=== PATIENT | female | born 1975 | race Caucasian/White ===

== ENCOUNTER → 2018-04-01 08:54 | Outpatient (CLI) | payer OTHER, SELFPAY ==
--- NOTE | 2018-04-01 | DI.MG.S_ITS ---
BILATERAL DIGITAL SCREENING MAMMOGRAM 3D/2D WITH CAD: 04/01/2018 CLINICAL: Routine screening. Family history of breast cancer. Comparison is made to exams dated: 03/03/2017 mammogram, 02/20/2016 mammogram - [facility], and 12/30/2014 mammogram - [facility]. There are scattered fibroglandular elements in both breasts. Current study was also evaluated with a Computer Aided Detection (CAD) system. No significant masses, calcifications, or other findings are seen in either breast. There has been no significant interval change. IMPRESSION: NEGATIVE There is no mammographic evidence of malignancy. A 1 year screening mammogram is recommended. This exam was interpreted at Station ID: [id number]. NOTE: For mammograms, a report in lay terms will be sent to the patient. Approximately 15% of breast malignancies will not be visualized mammographically. In the management of a palpable breast mass, a negative mammogram must not discourage biopsy of a clinically suspicious lesion. Electronically Signed By: Arnie ramírez/martin:04/01/2018 11:01:59 letter sent: Normal Exam ACR BI-RADS Category 1: Negative [id number]
== END ==
PROVIDERS: Family Provider Family Medicine; PCP Family Medicine; Visit Provider Family Medicine
DX: Z12.31 Encounter for screening mammogram for malignant neoplasm of breast (principal); Z80.3 Family history of malignant neoplasm of breast
CPT/HCPCS: 77063; 77067

== ENCOUNTER 2018-05-30 19:28 | Emergency (ER) | payer OTHER, SELFPAY ==
[2018-05-30 19:32] VITALS: BP 126/80; PULSE 96; RESP 22; TEMP 36.8; O2SAT 98; BMI 46.5
[2018-05-30 20:25] LABS: Alanine Aminotransferase 442 IU/L (9-52); Albumin 4.1 g/dL (3.5-5.0); Albumin Globulin Ratio 1.1 (1.0-2.8); Alkaline Phosphatase 133 U/L (38-126); Aspartate Aminotransferase 260 IU/L (14-36); BUN Creatinine Ratio 15.7 (6-22); Bilirubin Total 5.9 mg/dL (0.2-1.3); Blood Urea Nitrogen 11 mg/dL (7-17); Calcium 9.1 mg/dL (8.4-10.2); Carbon Dioxide 20 mmol/L (22-32); Chloride 103 mmol/L (98-107); Estimated Glomerular Filt Rate > 60.0 mL/min (>60); Globulin 3.8 g/dL (1.7-4.1); Glucose 101 mg/dL (70-100); HEMOLYSIS 36 (0-50); Lipase 69 U/L (23-300); Potassium 3.6 mmol/L (3.4-5.1); Sodium 135 mmol/L (137-145); Total Protein 7.9 g/dL (6.3-8.2)
[2018-05-30 20:33] LABS: Add Manual Diff / Slide Review NO; Basophils Absolute Auto 0 /uL (0-100); Basophils Percent Auto 0.3 % (0-2); Eosinophils Absolute Auto 0 /uL (0-450); Eosinophils Percent Auto 0.1 % (2-4); Hematocrit 40.2 % (36-46); Hemoglobin 13.5 g/dL (12.0-16.0); Lymphocytes Absolute Auto 600 /uL (1100-4500); Lymphocytes Percent Auto 4.1 % (25-40); Mean Corpuscular HGB Conc 33.6 % (30-36); Mean Corpuscular Hemoglobin 29.4 PG (26-34); Mean Corpuscular Volume 87.2 fL (80-100); Monocytes Absolute Auto 300 /uL (0-900); Monocytes Percent Auto 2.3 % (3-14); Neutrophils Absolute Auto 14000 /uL (1500-7000); Neutrophils Percent Auto 93.2 % (50-75); Platelet Count 258 X10^3/uL (150-400); Red Blood Cell Count 4.61 X10^6/uL (4.0-5.2); Red Cell Distribution Width 14.5 % (11.6-14.8)
[2018-05-30 20:44] VITALS: BP 112/61; PULSE 92; RESP 24; O2SAT 97
--- NOTE | 2018-05-30 21:41 | DI.CT.S_ITS ---
PROCEDURE: CT ABDOMEN PELVIS W CON INDICATIONS: abdominal pain, abnormal labs TECHNIQUE: After the administration of intravenous contrast, 5 mm thick sections acquired from the diaphragm to the symphysis. 5 mm coronal and sagittal reformats were acquired. For radiation dose reduction, the following was used: automated exposure control, adjustment of mA and/or kV according to patient size. COMPARISON: None. FINDINGS: Image quality: Excellent. ABDOMEN: Lung bases: Lung bases are clear. Heart size is normal. Solid organs: Liver is normal in size and enhancement. The liver is diffusely fatty infiltrated, moderate in severity Gallbladder has been previously resected. Biliary system is non dilated. Pancreas enhances normally. Spleen is normal in size and enhancement. No adrenal nodules. Kidneys demonstrate normal size and enhancement, without hydronephrosis. Peritoneum and bowel: Bowel loops demonstrate normal wall thickness and caliber. No free fluid or air. Nodes and vessels: No retroperitoneal or mesenteric adenopathy by size criteria. Aorta and inferior vena cava are normal in size. Miscellaneous: No ventral hernias. PELVIS: Genitourinary: Bladder wall thickness is normal. There is a normal-sized follicular cyst on the right at the ovary. Miscellaneous: No inguinal hernias or adenopathy. A normal or abnormal appendix could not be located Bones: No suspicious bony lesions. No vertebral body compression fractures. IMPRESSION: Large body habitus, which mildly degrades quality of visualization. Generalized fatty infiltration prominent throughout the liver. No sign of cirrhosis or hepatomegaly, or splenomegaly. A normal or abnormal appendix could not be located at the right lower quadrant but there is no secondary CT evidence of acute appendicitis. Note: These findings are concordant with the preliminary interpretation. Dictated by: Ariel Matute M.D. on 05/31/2018 at 10:05 Approved by: Ariel Matute M.D. on 05/31/2018 at 10:07
--- NOTE | 2018-05-30 21:43 | DI.US.S_ITS ---
PROCEDURE: US ABDOMEN COMPLETE INDICATIONS: ELEVATED LFTS; PAIN TECHNIQUE: Real-time scanning was performed of the abdominal and retroperitoneal organs, with image documentation. COMPARISON: None. FINDINGS: Liver: Liver is normal in size and homogeneous in echotexture, diffusely moderately hyperechoic consistent with fatty infiltration. Gallbladder: Surgically absent Biliary ducts: Intrahepatic bile ducts are non-dilated. Extrahepatic bile duct caliber measures 8.7 mm. Normal is 6-7 mm or less in diameter, or 10 mm or less post-cholecystectomy. Pancreas: Visualized portions of the pancreas are sonographically normal. Pancreatic tail not seen due to bowel gas. Spleen: Spleen is normal in size and homogeneous in echotexture. Kidneys: Kidneys are normal in size and echotexture. Right kidney measures 12.6 cm long; left kidney measures 12.5 cm long. No hydronephrosis or nephrolithiasis. No solid masses. Aorta: Visualized aorta is normal in caliber at less than 3 cm. Iliacs: Not seen due to bowel gas IVC: Intrahepatic inferior vena cava is patent. Miscellaneous: No free abdominal fluid. IMPRESSION: Hyperechoic liver echotexture consistent with fatty infiltration. Prior cholecystectomy. Portions of the peritoneal space are not well seen due to bowel gas, but overall a definite source of elevated liver function tests such as abscess formation or biliary obstruction is not found. Dictated by: Ariel Matute M.D. on 05/31/2018 at 8:36 Approved by: Ariel Matute M.D. on 05/31/2018 at 8:38
--- NOTE | 2018-05-30 21:47 | ED.ABDPAIN ---
HPI - Abdominal Pain General Chief Complaint: Abdominal Pain Stated Complaint: PAIN LEFT UPPER ABDOMIN FOOD POISONING Time Seen by Provider: 05/30/18 20:10 Source: patient Mode of arrival: ambulatory Limitations: no limitations History of Present Illness HPI narrative: Patient presents to the emergency department with complaint of left upper quadrant abdominal pain for the last 2 days. She states she was seen at [facility], after the pain began suddenly on night. She states she was worked up with labs, told she had food poisoning, and sent. She states the pain has continued to escalate over the ensuing days, and that she has been nauseated and unable to eat or drink much of anything. Patient denies any fevers; No cough or shortness of breath. No chest pain. patient denies any history of peptic ulcer disease. She states she has had a cholecystectomy, but has had problems with stones forming in remnant the duct. She states that this feels similar to that, except for the pain being on the left side, not the right. She states her pain is a 10/10. Nothing makes it better or worse. Related Data Home Medications Medication Instructions Recorded Confirmed albuterol sulfate 1 puff INHALATION Q4-6H PRN 05/31/18 05/31/18 bupropion HCl 300 mg PO QAM 05/31/18 05/31/18 escitalopram oxalate [Lexapro] 20 mg PO DAILY 05/31/18 05/31/18 omeprazole 40 mg PO DAILY 05/31/18 05/31/18 topiramate 100 mg PO DAILY 05/31/18 05/31/18 Allergies Allergy/AdvReac Type Severity Reaction Status Date / Time Pertussis Vaccines Allergy Unknown Verified 05/30/18 23:25 Review of Systems Constitutional Denies chills, Denies fever(s), Denies lethargy and Denies weakness Eyes Denies change in vision, Denies eye discharge, Denies irritation and Denies loss of vision ENT Ears, Nose, Mouth, and Throat: Denies change in voice, Denies neck pain and Denies sore throat Cardiovascular Denies chest pain, Denies irregular heart rhythm, Denies lightheadedness, Denies palpitations, Denies dyspnea, Denies dyspnea on exertion and Denies orthopnea Respiratory Denies cough, Denies dyspnea, Denies dyspnea on exertion and Denies wheezing Gastrointestinal Gastrointestinal: Reports abdominal pain, Denies change in bowel habits, Denies diarrhea, Reports nausea and Reports vomiting Genitourinary Denies hematuria, Denies flank pain, Denies urinary incontinence and Denies urinary urgency Musculoskeletal Denies neck pain Integumentary/Breasts Denies pruritus, Denies erythema, Denies rash and Denies wounds Neurologic Denies confusion, Denies loss of vision and Denies weakness Psychiatric Denies anxiety, Denies confusion, Denies depression, Denies homicidal ideation and Denies suicidal ideation Endocrine Denies palpitations Hematologic/Lymphatic Denies easy bruising Allergic/Immunologic Denies wheezing PFSH Medical History Recurrent abdominal pain (Acute) Morbid obesity (Acute) Surgical History History of cholecystectomy (Acute) Social History Smoking Status: Never smoker Social History Smoking Status: Never smoker Exam Initial Vital Signs Initial Vital Signs: Vital Signs Temperature 98.3 F 05/30/18 19:32 Pulse Rate 96 H 05/30/18 19:32 Respiratory Rate 22 05/30/18 19:32 Blood Pressure 126/80 05/30/18 19:32 Pulse Oximetry 98 05/30/18 19:32 Const General: cooperative and well developed Nutritional Appearance: obese morbidly obese Orientation: alert, awake, oriented x3 and not confused Other: Patient is grunting with exhalation, and appears uncomfortable. [facility] [place] Head: normocephalic and atraumatic Ears: external ears normal and TM's normal bilaterally Nose: external nose normal and No nasal discharge Face and sinus: sinuses nontender, face symmetric, no sinus tenderness and No dry mucous membranes Mouth: oral mucosae normal and moist mucous membranes Teeth and gingiva: dentition normal Throat: tonsils normal and uvula midline Eyes General: appearance normal, both eyes and all related structures Eyelids: eyelids normal Conjunctivae: conjunctivae normal Sclera: sclerae normal Pupils: PERRL EOM: EOM intact bilaterally Neck Neck: normal visual inspection, trachea midline, No lymphadenopathy, No midline deformity and No JVD Lymphatic: No lymphedema Chest Chest: normal inspection of the chest Resp Effort & Inspection: normal respiratory effort, able to speak in complete sentences, no respiratory distress and no use of accessory muscles Auscultation: clear to auscultation bilaterally, no rales, no rhonchi and no wheezes Cardio Rate: regular rate Rhythm: regular rhythm Heart Sounds: no click, no gallops, no murmurs and no rubs Pulses: normal peripheral pulses GI Inspection: non-distended Palpation: soft, no hepatosplenomegaly, No guarding, No pulsatile mass and tender ( Moderate, left upper quadrant; mild, right upper quadrant.) Back/Spine/Pelvis Back: No CVA tenderness Cervical Spine: cervical ROM normal and No pain with cervical ROM Thoracic/Lumbar Spine: thoracic and lumbar spine normal to inspection Skin General: no rashes or lesions noted, No jaundice and No petechiae Neuro General: alert, oriented x3, gait normal and no focal motor deficits Speech: speech normal Extrem General: full ROM, no clubbing, cyanosis or edema, no pedal edema and no calf tenderness Psych Appearance: well kempt Mental Status: mental status grossly normal Attitude: cooperative Thought Content: normal and suicidality Judgment: judgment good Course Course Narrative: Patient was treated symptomatically with IV fluids, Zofran, Dilaudid, and Toradol. She was worked up with labs, which showed elevations in her LFTs and bilirubin, new since patient was seen [address] [facility]. I spoke with Dr. Lindo of surgery about this, and she stated that the patient would need an ERCP which we do not have here. Through somewhat of a long process, I did interface with the triage Dr. rosalba Carey, as the patient does have [employer] membership, and the patient was ultimately accepted at [facility] for transfer. Patient was treated symptomatically throughout her stay in the emergency department is found to be doing better on re-evaluation. She did remain hemodynamically stable. Orders Ordered: Discontinued Medications Hydromorphone HCl (Dilaudid) 1 mg IV NOW ONE Stop: 05/30/18 21:44 Last Admin: 05/30/18 22:21 Dose: 1 mg Hydromorphone HCl (Dilaudid) 1 mg IV NOW ONE Stop: 05/31/18 02:36 Last Admin: 05/31/18 02:39 Dose: 1 mg Sodium Chloride (Normal Saline 0.9%) 1,000 mls @ 1,000 mls/hr IV BOLUS ONE Stop: 05/30/18 22:42 Last Infusion: 05/30/18 23:25 Dose: 0 mls/hr Admin: 05/30/18 22:19 Dose: 1,000 mls/hr Cefepime HCl 2 gm/ Sodium (Chloride) 100 mls @ 200 mls/hr IV NOW ONE Stop: 05/31/18 01:22 Last Infusion: 05/31/18 02:50 Dose: 0 mls/hr Admin: 05/31/18 02:39 Dose: 200 mls/hr Metronidazole (Flagyl) 500 mg in 100 mls @ 100 mls/hr IV NOW ONE Stop: 05/31/18 02:20 Last Infusion: 05/31/18 03:52 Dose: 0 mls/hr Admin: 05/31/18 02:45 Dose: 100 mls/hr Ketorolac Tromethamine (Toradol) 30 mg IV NOW ONE Stop: 05/30/18 21:44 Last Admin: 05/30/18 22:19 Dose: 30 mg Ondansetron HCl (Zofran) 4 mg IV NOW ONE Stop: 05/30/18 21:44 Last Admin: 05/30/18 22:19 Dose: 4 mg Vital Signs - 8 hr 05/30/18 19:32 05/30/18 20:44 Temperature 98.3 F Pulse Rate 96 H 92 H Respiratory Rate 22 24 Blood Pressure 126/80 Blood Pressure [Left Arm] 112/61 Pulse Oximetry 98 97 MDM - Abdominal Pain Medical Records Attestation: I reviewed the patient's medical records. Lab Data Attestation: I reviewed the patient's lab results. Result diagrams: 05/30/18 19:55 05/30/18 19:55 Lab Results 05/30/18 05/30/18 05/30/18 Range/Units 19:55 19:55 19:55 WBC 15.0 H (4.5-11.0) X10^3/uL RBC 4.61 (4.0-5.2) X10^6/uL Hgb 13.5 (12.0-16.0) g/dL Hct 40.2 (36-46) % MCV 87.2 (80-100) fL MCH 29.4 (26-34) PG MCHC 33.6 (30-36) % RDW 14.5 (11.6-14.8) % Plt Count 258 (150-400) X10^3/uL Neut % (Auto) 93.2 H (50-75) % Lymph % (Auto) 4.1 L (25-40) % [place] % (Auto) 2.3 L (3-14) % Eos % (Auto) 0.1 L (2-4) % Baso % (Auto) 0.3 (0-2) % Neut # (Auto) 58098 H (9016-3369) /uL Lymph # (Auto) 600 L (3754-1100) /uL [place] # (Auto) 300 (0-900) /uL Eos # (Auto) 0 (0-450) /uL Baso # (Auto) 0 (0-100) /uL PT 15.1 H (10.1-12.7) SECONDS INR 1.3 (0.9-1.3) Sodium 135 L (137-145) mmol/L Potassium 3.6 (3.4-5.1) mmol/L Chloride 103 (98-107) mmol/L Carbon Dioxide 20 L (22-32) mmol/L BUN 11 (7-17) mg/dL Creatinine 0.70 (0.52-1.04) mg/dL Estimated GFR > 60.0 (>60) mL/min BUN/Creatinine Ratio 15.7 (6-22) Glucose 101 H (70-100) mg/dL Calcium 9.1 (8.4-10.2) mg/dL Total Bilirubin 5.9 H (0.2-1.3) mg/dL AST 260 H (14-36) IU/L ALT 442 H (9-52) IU/L Alkaline Phosphatase 133 H (38-126) U/L Total Protein 7.9 (6.3-8.2) g/dL Albumin 4.1 (3.5-5.0) g/dL Globulin 3.8 (1.7-4.1) g/dL Albumin/Globulin Ratio 1.1 (1.0-2.8) Lipase 69 (23-300) U/L Imaging Data CT scan - abdomen: Radiologist's impression: D Accession Number: [id number] Procedure: CT abdomen pelvis w con Ordering Provider: Bre Mccauley MD PROCEDURE: CT ABDOMEN PELVIS W CON INDICATIONS: abdominal pain, abnormal labs TECHNIQUE: After the administration of intravenous contrast, 5 mm thick sections acquired from the diaphragm to the symphysis. 5 mm coronal and sagittal reformats were acquired. For radiation dose reduction, the following was used: automated exposure control, adjustment of mA and/or kV according to patient size. COMPARISON: None. FINDINGS: Image quality: Excellent. ABDOMEN: Lung bases: Lung bases are clear. Heart size is normal. Solid organs: Liver is normal in size and enhancement. The liver is diffusely fatty infiltrated, moderate in severity Gallbladder has been previously resected. Biliary system is non dilated. Pancreas enhances normally. Spleen is normal in size and enhancement. No adrenal nodules. Kidneys demonstrate normal size and enhancement, without hydronephrosis. Peritoneum and bowel: Bowel loops demonstrate normal wall thickness and caliber. No free fluid or air. Nodes and vessels: No retroperitoneal or mesenteric adenopathy by size criteria. Aorta and inferior vena cava are normal in size. Miscellaneous: No ventral hernias. PELVIS: Genitourinary: Bladder wall thickness is normal. There is a normal-sized follicular cyst on the right at the ovary. Miscellaneous: No inguinal hernias or adenopathy. A normal or abnormal appendix could not be located Bones: No suspicious bony lesions. No vertebral body compression fractures. IMPRESSION: Large body habitus, which mildly degrades quality of visualization. Generalized fatty infiltration prominent throughout the liver. No sign of cirrhosis or hepatomegaly, or splenomegaly. A normal or abnormal appendix could not be located at the right lower quadrant but there is no secondary CT evidence of acute appendicitis. Note: These findings are concordant with the preliminary interpretation. Dictated by: Ariel Matute M.D. on 05/31/2018 at 10:05 Approved by: Ariel Matute M.D. on 05/31/2018 at 10:07 US - abdomen: Radiologist's impression: [place] [address] Ultrasound Report Signed Patient: Erin Rangel KMR#: [id number] : 1975Acct:[id number] Age/Sex: 42 / FDate of Service: 05/30/18 Loc: ED Accession Number: [id number] Procedure: US abdomen complete Ordering Provider: Bre Mccauley MD PROCEDURE: US ABDOMEN COMPLETE INDICATIONS: ELEVATED LFTS; PAIN TECHNIQUE: Real-time scanning was performed of the abdominal and retroperitoneal organs, with image documentation. COMPARISON: None. FINDINGS: Liver: Liver is normal in size and homogeneous in echotexture, diffusely moderately hyperechoic consistent with fatty infiltration. Gallbladder: Surgically absent Biliary ducts: Intrahepatic bile ducts are non-dilated. Extrahepatic bile duct caliber measures 8.7 mm. Normal is 6-7 mm or less in diameter, or 10 mm or less post-cholecystectomy. Pancreas: Visualized portions of the pancreas are sonographically normal. Pancreatic tail not seen due to bowel gas. Spleen: Spleen is normal in size and homogeneous in echotexture. Kidneys: Kidneys are normal in size and echotexture. Right kidney measures 12.6 cm long; left kidney measures 12.5 cm long. No hydronephrosis or nephrolithiasis. No solid masses. Aorta: Visualized aorta is normal in caliber at less than 3 cm. Iliacs: Not seen due to bowel gas IVC: Intrahepatic inferior vena cava is patent. Miscellaneous: No free abdominal fluid. IMPRESSION: Hyperechoic liver echotexture consistent with fatty infiltration. Prior cholecystectomy. Portions of the peritoneal space are not well seen due to bowel gas, but overall a definite source of elevated liver function tests such as abscess formation or biliary obstruction is not found. Dictated by: Ariel Matute M.D. on 05/31/2018 at 8:36 Approved by: Ariel Matute M.D. on 05/31/2018 at 8:38 Discharge Plan Departure Patient Disposition: [facility] Clinical Impression: Abdominal pain, Blockage of a bile duct Discharge Date/Time: 05/31/18 04:00 Interventions: ED Discharge Assessment Last Done: 05/31/18 03:13 Prescriptions: No Action omeprazole 40 mg Capsule,Delayed Release(Dr/Ec) 40 mg PO DAILY RF: 0 topiramate 100 mg Tablet 100 mg PO DAILY RF: 0 escitalopram oxalate [Lexapro] 20 mg Tablet 20 mg PO DAILY RF: 0 bupropion HCl 300 mg Tablet Extended Release 24 Hr 300 mg PO QAM RF: 0 albuterol sulfate 90 mcg/actuation Hfa Aerosol Inhaler 1 puff INHALATION Q4-6H PRN (Reason: Shortness Of Breath) RF: 0
[2018-05-30 22:05] LABS: INR 1.3 (0.9-1.3); Prothrombin Time 15.1 SECONDS (10.1-12.7)
[2018-05-30] MEDS: SODIUM CHLORIDE 0.9% 1,000 ML 1000 ML IV (22:19)
[2018-05-30] MEDS: KETOROLAC 60 MG/2 ML VIAL 30 MG IV (22:19)
[2018-05-30] MEDS: ONDANSETRON 4 MG/2 ML INJ IV (22:19)
[2018-05-30] MEDS: HYDROMORPHONE 1 MG INJ IV (22:21)
[2018-05-30 22:47] VITALS: BP 114/59; PULSE 91; RESP 20; O2SAT 99
[2018-05-31] VITALS: BP 108/54; PULSE 78; RESP 16; O2SAT 96
[2018-05-31 02:30] VITALS: BP 111/44; PULSE 85; RESP 16; O2SAT 97
[2018-05-31] MEDS: CEFEPIME 2 GM in SODIUM CHLORIDE 0.9% 100 ML 200 ML IV (02:39)
[2018-05-31] MEDS: HYDROMORPHONE 1 MG INJ IV (02:39)
[2018-05-31] MEDS: metroNIDAZOLE 500 MG/100 ML PIGGYBACK 100 MG IV (02:45)
[2018-05-31 03:01] VITALS: BP 106/55; PULSE 76; RESP 16; O2SAT 96
== END 2018-05-31 04:00 | disposition short-term general hospital (02) ==
PROVIDERS: Emergency Provider Emergency Medicine; Family Provider Family Medicine; PCP Family Medicine
DX: K83.1 Obstruction of bile duct (principal); R10.9 Unspecified abdominal pain
CPT/HCPCS: 36591; 74177; 76700; 80053; 83690; 85025; 85610; 93005; 96361; 96365; 96375; 96376; 99284; 99285; J0692; J1170; J1885; J2405; Q9967

== ENCOUNTER 2020-05-08 17:49 | Emergency (ER) | payer OTHER, SELFPAY ==
[2020-05-08] VITALS (8 sets, daily range): BP systolic 128–137; BP diastolic 68–91; PULSE 68–82; RESP 16; TEMP 36.1; O2SAT 95–100; BMI 56.6
--- NOTE | 2020-05-08 18:09 | DI.RAD.S_ITS ---
PROCEDURE: XR CHEST 1V INDICATIONS: shortness of breath TECHNIQUE: One view of the chest was acquired. COMPARISON: None. FINDINGS: Surgical changes and devices: None. Lungs and pleura: Small opacity at the medial right lung base. No pleural effusions or pneumothorax. Mediastinum: Mediastinal contours appear normal. Heart size is borderline enlarged, probably accentuated due to projection. Bones and chest wall: No suspicious bony lesions. Overlying soft tissues appear unremarkable. IMPRESSION: Questionable small right medial lung base opacity. Infiltrate is not excluded. Dictated by: Diane Lou M.D. on 05/08/2020 at 18:26 Approved by: Diane Lou M.D. on 05/08/2020 at 18:27
[2020-05-08 18:37] LABS: Add Manual Diff / Slide Review NO; Basophils Absolute Auto 100 /uL (0-100); Basophils Percent Auto 1.2 % (0-2); Eosinophils Absolute Auto 400 /uL (0-450); Eosinophils Percent Auto 4.3 % (2-4); Hematocrit 38.9 % (36-46); Hemoglobin 12.9 g/dL (12.0-16.0); Lymphocytes Absolute Auto 2800 /uL (1100-4500); Lymphocytes Percent Auto 34.2 % (25-40); Mean Corpuscular HGB Conc 33.2 % (30-36); Mean Corpuscular Hemoglobin 28.8 PG (26-34); Mean Corpuscular Volume 86.8 fL (80-100); Monocytes Absolute Auto 500 /uL (0-900); Monocytes Percent Auto 6.4 % (3-14); Neutrophils Absolute Auto 4400 /uL (1500-7000); Neutrophils Percent Auto 53.9 % (50-75); Platelet Count 330 X10^3/uL (150-400); Red Blood Cell Count 4.48 X10^6/uL (4.0-5.2); Red Cell Distribution Width 14.9 % (11.6-14.8); White Blood Cell Count 8.2 X10^3/uL (4.5-11.0)
[2020-05-08 18:56] LABS: Alanine Aminotransferase 38 IU/L (<35); Albumin 4.1 g/dL (3.5-5.0); Albumin Globulin Ratio 1.3 (1.0-2.8); Alkaline Phosphatase 68 U/L (38-126); Aspartate Aminotransferase 35 IU/L (14-36); BUN Creatinine Ratio 18.1 (6-22); Bilirubin Total 0.2 mg/dL (0.2-1.3); Blood Urea Nitrogen 13 mg/dL (7-17); Calcium 9.6 mg/dL (8.4-10.2); Carbon Dioxide 28 mmol/L (22-32); Chloride 104 mmol/L (98-107); Creatine Kinase 87 U/L (30-135); Estimated Glomerular Filt Rate > 60.0 mL/min (>60); Globulin 3.2 g/dL (1.7-4.1); Glucose 101 mg/dL (70-100); HEMOLYSIS < 15 (0-50); Lipase 118 U/L (23-300); Potassium 4.3 mmol/L (3.4-5.1); Sodium 136 mmol/L (137-145); Total Protein 7.3 g/dL (6.3-8.2)
[2020-05-08 19:08] LABS: NT-proBNP (BNP-Adult 18+) 136 pg/mL (<125); Troponin I < 0.012 ng/mL (0.01-0.034)
--- NOTE | 2020-05-08 19:52 | ED.CHESTPAIN ---
HPI - Chest Pain General Chief Complaint: Chest Pain Stated Complaint: Chest Pain Time Seen by Provider: 05/08/20 18:05 Source: patient Mode of arrival: Ambulatory Limitations: no limitations History of Present Illness HPI narrative: 44-year-old female here for evaluation of left-sided chest discomfort. She states that it has been going on off and on for the past several days. Not worse with palpation or movement or breathing. Has not had any shortness of breath. At the time of my interview she was having the discomfort although she admits that it was not as strong as what it has been in the past. She thought that the symptoms that she had at that time had been going on for the past several hours. She is unsure the exact onset. Has not tried anything for the symptoms prior to arrival. No prior history of cardiovascular disease. Related Data Home Medications Medication Instructions Recorded Confirmed albuterol sulfate 1 puff INHALATION Q4-6H PRN 05/31/18 05/31/18 bupropion HCl 300 mg PO QAM 05/31/18 05/31/18 escitalopram oxalate [Lexapro] 20 mg PO DAILY 05/31/18 05/31/18 omeprazole 40 mg PO DAILY 05/31/18 05/31/18 topiramate 100 mg PO DAILY 05/31/18 05/31/18 Allergies Allergy/AdvReac Type Severity Reaction Status Date / Time Pertussis Vaccines Allergy Unknown Verified 05/30/18 23:25 Review of Systems Constitutional Constitutional: Denies fever(s) Cardiovascular Cardiovascular: Reports chest pain and Denies dyspnea Respiratory Respiratory: Denies dyspnea Gastrointestinal Gastrointestinal: Denies abdominal pain, Denies nausea and Denies vomiting Genitourinary Genitourinary: Denies dysuria Genitourinary: Denies dysuria Musculoskeletal Musculoskeletal: Denies arthralgias and Denies myalgias Integumentary/Breasts Skin/Breast: Denies rash Neurologic Neurologic: Denies behavioral changes Psychiatric Psychiatric: Denies behavioral changes Hematologic/Lymphatic On Anticoagulants: No Allergic/Immunologic Allergic/Immunologic: Denies urticaria Patient History Medical History Morbid obesity Recurrent abdominal pain Surgical History (Updated 05/30/18 @ 21:59 by Bre Mccauley MD) History of cholecystectomy Social History Smoking Status: Never smoker Smoking Status: Never smoker alcohol intake frequency: 0-2 drinks per day Substance Use Type: marijuana Exam Initial Vital Signs Initial Vital Signs: Vital Signs Temperature 97.0 F L 05/08/20 18:10 Pulse Rate 82 05/08/20 18:10 Respiratory Rate 16 05/08/20 18:10 Blood Pressure 137/91 H 05/08/20 18:10 Pulse Oximetry 99 05/08/20 18:10 Const General: cooperative, comfortable and well developed Limitations: mental status not altered HENMT Head: normal to inspection and normocephalic Chest Chest: No crepitus and No tenderness Resp Effort & Inspection: normal respiratory effort Auscultation: clear to auscultation bilaterally Cardio Rate: regular rate Rhythm: regular rhythm GI Inspection: non-distended Palpation: soft, No firm and No tender Skin Lesions: no lesions Rashes: no rashes Neuro General: patient alert, patient awake and patient oriented x3 Cognition: normal cognition Speech: speech normal Extrem General: capillary refill normal Psych Appearance: grossly normal and well kempt Scores GCS Leigh coma scale eye opening: Spontaneous [place] coma scale verbal response: Orientated [place] coma scale motor response: Obey commands Leigh coma scale total score: 15 HEART Score Heart Score history: Slightly Suspicious Heart Score EKG: Normal Heart Score Age: 45-64 years old Heart Score risk factors: 1-2 risk factors Heart Score troponin: < or = to normal limit Heart Score Total: 2 Course Orders Ordered: ED Orders 05/08/20 17:57 EKG-12 Lead Stat 05/08/20 18:09 XR chest 1V Stat 05/08/20 18:29 Complete Blood Count AUTO DIFF Stat Comprehensive Metabolic Panel Stat Lipase Stat NT-proBNP (BNP-Adult 18+) Stat Troponin & CK Cardiac Panel Stat 05/08/20 20:32 Troponin & CK Cardiac Panel Stat Vital Signs Vital signs: Vital Signs - 8 hr 05/08/20 18:10 05/08/20 18:30 05/08/20 19:00 Temperature 97.0 F L Pulse Rate 74 75 71 Respiratory Rate 16 Blood Pressure 137/91 H Pulse Oximetry 100 99 99 05/08/20 19:30 05/08/20 19:54 05/08/20 20:00 Temperature Pulse Rate 70 68 69 Respiratory Rate Blood Pressure 137/91 H 134/74 132/76 Pulse Oximetry 98 98 96 05/08/20 20:30 05/08/20 21:00 Temperature Pulse Rate 70 76 Respiratory Rate Blood Pressure 128/68 133/78 Pulse Oximetry 96 95 MDM - Chest Pain Lab Data Attestation: I reviewed the patient's lab results. Result diagrams: 05/08/20 18:29 05/08/20 18:29 Labs: Lab Results 05/08/20 05/08/20 05/08/20 Range/Units 18:29 18:29 20:32 WBC 8.2 (4.5-11.0) X10^3/uL RBC 4.48 (4.0-5.2) X10^6/uL Hgb 12.9 (12.0-16.0) g/dL Hct 38.9 (36-46) % MCV 86.8 (80-100) fL MCH 28.8 (26-34) PG MCHC 33.2 (30-36) % RDW 14.9 H (11.6-14.8) % Plt Count 330 (150-400) X10^3/uL Neut % (Auto) 53.9 (50-75) % Lymph % (Auto) 34.2 (25-40) % Burnett % (Auto) 6.4 (3-14) % Eos % (Auto) 4.3 H (2-4) % Baso % (Auto) 1.2 (0-2) % Neut # (Auto) 4400 (0216-7506) /uL Lymph # (Auto) 2800 (8690-8501) /uL Burnett # (Auto) 500 (0-900) /uL Eos # (Auto) 400 (0-450) /uL Baso # (Auto) 100 (0-100) /uL Sodium 136 L (137-145) mmol/L Potassium 4.3 (3.4-5.1) mmol/L Chloride 104 (98-107) mmol/L Carbon Dioxide 28 (22-32) mmol/L BUN 13 (7-17) mg/dL Creatinine 0.72 (0.52-1.04) mg/dL Estimated GFR > 60.0 (>60) mL/min BUN/Creatinine Ratio 18.1 (6-22) Glucose 101 H (70-100) mg/dL Calcium 9.6 (8.4-10.2) mg/dL Total Bilirubin 0.2 (0.2-1.3) mg/dL AST 35 (14-36) IU/L ALT 38 H (<35) IU/L Alkaline Phosphatase 68 (38-126) U/L Total Creatine Kinase 87 82 (30-135) U/L CK-MB (CK-2) TNP TNP CK-MB (CK-2) Rel Index TNP TNP Troponin I < 0.012 < 0.012 (0.01-0.034) ng/mL NT-Pro-B Natriuret Pep 136 H (<125) pg/mL Total Protein 7.3 (6.3-8.2) g/dL Albumin 4.1 (3.5-5.0) g/dL Globulin 3.2 (1.7-4.1) g/dL Albumin/Globulin Ratio 1.3 (1.0-2.8) Lipase 118 (23-300) U/L Point of Care Testing Test Results Negative Urine Dip Bedside Urine Glucose Negative Bedside Urine Bilirubin - Negative Bedside Urine Ketone - Negative Urine Specific [place] 1.020 Bedside Urine Occult Blood - Negative Bedside Urine pH 6.0 Bedside Urine Protein - Negative Bedside Urine Urobilinogen - Negative Bedside Urine Nitrite - Negative Bedside Urine Leukocytes - Negative Esterase Imaging Data Chest x-ray: Radiologist's Impression: [address] [id number] ReportSigned Patient: Erin Rangel KMR#: [id number]: [id number]:[id number]/Sex: 44 / FDate of Service: 05/08/20Loc: EDAccession Number: [id number] Procedure: XR chest 1V Ordering Provider: Gonzales Bernstein D.O. PROCEDURE: XR CHEST 1V INDICATIONS: shortness of breath TECHNIQUE: One view of the chest was acquired. COMPARISON: None. FINDINGS: Surgical changes and devices: None. Lungs and pleura: Small opacity at the medial right lung base. No pleural effusions or pneumothorax. Mediastinum: Mediastinal contours appear normal. Heart size is borderline enlarged, probably accentuated due to projection. Bones and chest wall: No suspicious bony lesions. Overlying soft tissues appear unremarkable. IMPRESSION: Questionable small right medial lung base opacity. Infiltrate is not excluded. Dictated by: Diane Lou M.D. on 05/08/2020 at 18:26 Approved by: Diane Lou M.D. on 05/08/2020 at 18:27 ECG Data Attestation: I personally reviewed and interpreted this ECG as follows: Prior ECG tracings: not available for review Interpretation: Sinus rhythm Ventricular rate is 71 Normal axis Normal QRS Normal QTC No ST T wave changes MDM Narrative Medical decision making narrative: Chest x-ray is unremarkable, EKG is unremarkable, low risk heart score, troponins negative x2. Will discharge patient home to follow-up with primary doctor to discuss further workup to include stress testing. She was given return precautions and follow-up instructions. She expressed understanding and agreement. Discharge Plan Departure Patient Disposition: Home Clinical Impression: Atypical chest pain Instructions: DI for Atypical Chest Pain Activity Restrictions/Additional Instructions: Continue all of your medications as directed. Recommend that you follow-up with your primary doctor both to discuss further workup to include a potential stress test and also to talk about a repeat chest x-ray. Return to the emergency department for any new or worsening symptoms Prescriptions: No Action omeprazole 40 mg Capsule,Delayed Release(Dr/Ec) 40 mg PO DAILY RF: 0 topiramate 100 mg Tablet 100 mg PO DAILY RF: 0 escitalopram oxalate [Lexapro] 20 mg Tablet 20 mg PO DAILY RF: 0 bupropion HCl 300 mg Tablet Extended Release 24 Hr 300 mg PO QAM RF: 0 albuterol sulfate 90 mcg/actuation Hfa Aerosol Inhaler 1 puff INHALATION Q4-6H PRN (Reason: Shortness Of Breath) RF: 0 Referrals: Tima Cortes DO [Primary Care Provider] -
[2020-05-08 20:54] LABS: Creatine Kinase 82 U/L (30-135)
[2020-05-08 21:05] LABS: Troponin I < 0.012 ng/mL (0.01-0.034)
== END 2020-05-08 21:30 | disposition home or self-care (01) ==
PROVIDERS: Emergency Provider Emergency Medicine; Family Provider Family Medicine; PCP Family Medicine
DX: R07.89 Other chest pain (principal); R06.02 Shortness of breath; E66.01 Morbid (severe) obesity due to excess calories; Z68.43 Body mass index [BMI] 50.0-59.9, adult
CPT/HCPCS: 36415; 71045; 80053; 81003; 81025; 82550; 83690; 83880; 84484; 85025; 93005; 93010; 99283; 99284

== ENCOUNTER → 2020-05-18 16:23 | Outpatient (CLI) | payer OTHER, SELFPAY ==
--- NOTE | 2020-05-18 | DI.MG.S_ITS ---
BILATERAL DIGITAL SCREENING MAMMOGRAM 3D/2D WITH CAD: 05/18/2020 CLINICAL: Routine screening. Family history of breast cancer. Comparison is made to exams dated: 04/01/2018 mammogram, 03/03/2017 mammogram, and 02/20/2016 mammogram - [facility]. The tissue of both breasts is predominantly fatty. Current study was also evaluated with a Computer Aided Detection (CAD) system. No significant masses, calcifications, or other findings are seen in either breast. There has been no significant interval change. IMPRESSION: NEGATIVE There is no mammographic evidence of malignancy. A 1 year screening mammogram is recommended. This exam was interpreted at Station ID: [id number]. NOTE: For mammograms, a report in lay terms will be sent to the patient. Approximately 15% of breast malignancies will not be visualized mammographically. In the management of a palpable breast mass, a negative mammogram must not discourage biopsy of a clinically suspicious lesion. Electronically Signed By: Bruce freitas/martin:05/18/2020 17:08:03 letter sent: Normal Exam ACR BI-RADS Category 1: Negative 3341F
== END ==
PROVIDERS: Family Provider Family Medicine; PCP Family Medicine; Referring Provider Family Medicine; Visit Provider Family Medicine
DX: Z12.31 Encounter for screening mammogram for malignant neoplasm of breast (principal)
CPT/HCPCS: 77063; 77067

== ENCOUNTER 2021-02-20 14:34 | Emergency (ER) | payer OTHER, SELFPAY ==
[2021-02-20 14:40] VITALS: BP 137/71; PULSE 85; RESP 22; TEMP 36.9; O2SAT 99
--- NOTE | 2021-02-20 20:19 | ED_ITS ---
HPI - Back Pain/Injury General Chief Complaint: Back Pain/Injury Stated Complaint: lower back pain/possible kidney problems Time Seen by Provider: 02/20/21 19:57 Source: patient Mode of arrival: Ambulatory History of Present Illness HPI Narrative: 45-year-old female here for evaluation bilateral lower back discomfort. There has been no specific injury. No radiation down into her legs. She does use a cane because of left knee discomfort. Did try some [id number] anti-inflammatories earlier today without any improvement. No urinary symptoms. She was concerned about potential kidney problems because the location of the discomfort. No fevers. No skin changes. Related Data Home Medications Medication Instructions Recorded Confirmed albuterol sulfate 90 mcg/actuation 1 puff INHALATION Q4-6H PRN 05/31/18 05/31/18 aerosol inhaler bupropion HCl 300 mg 24 hr tablet, 300 mg PO QAM 05/31/18 05/31/18 extended release escitalopram oxalate 20 mg tablet 20 mg PO DAILY 05/31/18 05/31/18 (Lexapro) omeprazole 40 mg capsule,delayed 40 mg PO DAILY 05/31/18 05/31/18 release topiramate 100 mg tablet 100 mg PO DAILY 05/31/18 05/31/18 Previous Rx's Medication Instructions Recorded cyclobenzaprine 10 mg tablet 10 mg PO TID PRN #14 tab 02/20/21 Allergies Allergy/AdvReac Type Severity Reaction Status Date / Time Pertussis Vaccines Allergy Unknown Verified 05/30/18 23:25 Review of Systems Constitutional Constitutional: Denies fever(s) Cardiovascular Cardiovascular: Reports system reviewed and no additional complaints, except as documented Respiratory Respiratory: Reports system reviewed and no additional complaints, except as documented Gastrointestinal Gastrointestinal: Reports system reviewed and no additional complaints, except as documented Genitourinary Genitourinary: Reports system reviewed and no additional complaints, except as documented Musculoskeletal Musculoskeletal: Reports as per HPI Integumentary/Breasts Skin/Breast: Reports system reviewed and no additional complaints, except as documented Neurologic Neurologic: Reports system reviewed and no additional complaints, except as documented and Reports as per HPI Psychiatric Psychiatric: Reports system reviewed and no additional complaints, except as documented Endocrine Endocrine: Reports system reviewed and no additional complaints, except as documented Hematologic/Lymphatic On Anticoagulants: No Allergic/Immunologic Allergic/Immunologic: Reports system reviewed and no additional complaints, except as documented Patient History Medical History Morbid obesity Recurrent abdominal pain Surgical History (Updated 05/30/18 @ 21:59 by Bre Mccauley MD) History of cholecystectomy Social History Smoking Status: Never smoker Smoking Status: Never smoker alcohol intake frequency: 0-2 drinks per day Substance Use Type: marijuana Exam Initial Vital Signs Initial Vital Signs: Vital Signs Temperature 98.5 F 02/20/21 14:40 Pulse Rate 85 02/20/21 14:40 Respiratory Rate 22 02/20/21 14:40 Blood Pressure 137/71 02/20/21 14:40 Pulse Oximetry 99 02/20/21 14:40 Const General: cooperative and comfortable HENMT Head: normal to inspection and normocephalic Neck Neck: normal visual inspection Chest Chest: normal inspection of the chest Resp Effort & Inspection: normal respiratory effort Auscultation: clear to auscultation bilaterally Cardio Rate: regular rate Rhythm: regular rhythm GI Inspection: normal to inspection Back/Spine/Pelvis Back: No CVA tenderness Thoracic/Lumbar Spine: paraspinal tenderness (Thoracolumbar junction bilaterally), No thoracic spinal tenderness and No lumbar spinal tenderness Skin General: no rashes or lesions noted Neuro General: patient alert, patient awake, patient oriented x3 and moves all extremities Extrem General: normal to inspection and capillary refill normal Psych Appearance: grossly normal and well kempt Course Orders Ordered: Discontinued Medications Ketorolac Tromethamine (Ketorolac 30 Mg/Ml Vial) 30 mg IM NOW ONE Stop: 02/20/21 20:20 Last Admin: 02/20/21 20:34 Dose: 30 mg Documented by: SINDHU Vital Signs Vital signs: Vital Signs - 8 hr 02/20/21 20:24 Pulse Rate 84 Blood Pressure 133/63 Pulse Oximetry 96 MDM - Back Pain/Injury Lab Data Attestation: I reviewed the patient's lab results. Labs: Point of Care Testing Test Results Negative Urine Dip Bedside Urine Glucose Negative Bedside Urine Bilirubin - Negative Bedside Urine Ketone +/- 5 Urine Specific [place] 1.030 Bedside Urine Occult Blood - Negative Bedside Urine pH 6.0 Bedside Urine Protein - Negative Bedside Urine Urobilinogen - Negative Bedside Urine Nitrite - Negative Bedside Urine Leukocytes - Negative Esterase MDM Narrative Medical decision making narrative: No specific trauma. Urinalysis is unremarkable. Low suspicion for kidney stone. Low suspicion for pyelonephritis. No skin changes over the area. No indication for antibiotics. No indication for radiologic studies. I did discuss the importance of continued anti-inflammatories. We did discuss other conservative measures to include heat and ice and staying active and stretching. She was given return precautions. She expressed understanding and agreement. Discharge Plan Departure Patient Disposition: Home Clinical Impression: Back pain Instructions: DI for Back Strain or Sprain Activity Restrictions/Additional Instructions: Fortunately most back pain does improve on its own however it may take weeks or longer this to happen. Is important that you stay as active as possible. You can use heat and ice and massage. I would also recommend you talk with your primary doctor about a referral to see Physical therapy. Recommend that you continue with anti-inflammatories such as Motrin/Naprosyn with food. You can take these multiple times a day as directed on the packaging. Return to the emergency department for any new symptoms Prescriptions: New cyclobenzaprine 10 mg tablet 10 mg PO TID PRN (Reason: muscle spasm) Qty: 14 RF: 0 No Action omeprazole 40 mg Capsule,Delayed Release(Dr/Ec) 40 mg PO DAILY RF: 0 topiramate 100 mg Tablet 100 mg PO DAILY RF: 0 escitalopram oxalate [Lexapro] 20 mg Tablet 20 mg PO DAILY RF: 0 bupropion HCl 300 mg Tablet Extended Release 24 Hr 300 mg PO QAM RF: 0 albuterol sulfate 90 mcg/actuation Hfa Aerosol Inhaler 1 puff INHALATION Q4-6H PRN (Reason: Shortness Of Breath) RF: 0 Referrals: Tima Cortes DO [Primary Care Provider] -
[2021-02-20 20:24] VITALS: BP 133/63; PULSE 84; O2SAT 96
[2021-02-20] MEDS: KETOROLAC 30 MG/ML VIAL IM (20:34)
== END 2021-02-20 20:36 | disposition home or self-care (01) ==
PROVIDERS: Emergency Provider Emergency Medicine; Family Provider Family Medicine; PCP Family Medicine
DX: M54.50 Low back pain, unspecified (principal)
CPT/HCPCS: 81003; 81025; 96372; 99283; J1885

== ENCOUNTER → 2021-11-29 07:58 | Outpatient (CLI) | payer OTHER, SELFPAY ==
--- NOTE | 2021-11-29 | DI.MG.S_ITS ---
BILATERAL DIGITAL SCREENING MAMMOGRAM 3D/2D WITH CAD: 11/29/2021 CLINICAL: Routine screening. Family history of breast cancer. Comparison is made to exams dated: 05/18/2020 mammogram, 04/01/2018 mammogram - [facility], and 12/30/2014 mammogram - [facility]. The tissue of both breasts is predominantly fatty. Current study was also evaluated with a Computer Aided Detection (CAD) system. No significant masses, calcifications, or other findings are seen in either breast. There has been no significant interval change. IMPRESSION: NEGATIVE There is no mammographic evidence of malignancy. A 1 year screening mammogram is recommended. Based on the Tyrer Cuzick model (a risk assessment model) the patient's lifetime risk is 11.8% and her 10 year risk is 2.5%. According to the ACR, ACS, and NCCN guidelines, an annual breast MRI exam along with mammogram is recommended if the patient's lifetime risk is 20% or greater. This exam was interpreted at Station ID: [id number]. NOTE: For mammograms, a report in lay terms will be sent to the patient. Approximately 15% of breast malignancies will not be visualized mammographically. In the management of a palpable breast mass, a negative mammogram must not discourage biopsy of a clinically suspicious lesion. Electronically Signed By: Corona neely/martin:11/30/2021 08:04:22 letter sent: Normal Exam ACR BI-RADS Category 1: Negative 3341F
== END ==
PROVIDERS: Family Provider Family Medicine; PCP Family Medicine; Referring Provider Family Medicine; Visit Provider Family Medicine
DX: Z12.31 Encounter for screening mammogram for malignant neoplasm of breast (principal); Z80.3 Family history of malignant neoplasm of breast
CPT/HCPCS: 77063; 77067

== ENCOUNTER → 2022-12-06 12:57 | Outpatient (CLI) | payer OTHER, SELFPAY ==
--- NOTE | 2022-12-06 | DI.MG.S_ITS ---
BILATERAL DIGITAL SCREENING MAMMOGRAM 3D/2D WITH CAD: 12/06/2022 CLINICAL: Routine screening. Family history of breast cancer. Comparison is made to exams dated: 11/29/2021 mammogram, 05/18/2020 mammogram, and 04/01/2018 mammogram - [facility]. There are scattered areas of fibroglandular density in both breasts (category b / 25%-50% glandular tissue). Current study was also evaluated with a Computer Aided Detection (CAD) system. There is a 1 cm oval equal density focal asymmetry in the right breast at 11 o'clock posterior depth. This is more prominent and increased in size. No other significant masses, calcifications, or other findings are seen in either breast. IMPRESSION: INCOMPLETE: NEEDS ADDITIONAL IMAGING EVALUATION The 1 cm oval equal density focal asymmetry in the right breast resembles a cyst or a lymph node and is indeterminate. Additional views with possible ultrasound are recommended. Based on the Tyrer Cuzick model (a risk assessment model) the patient's lifetime risk is 17.3% and her 10 year risk is 3.9%. According to the ACR, ACS, and NCCN guidelines, an annual breast MRI exam along with mammogram is recommended if the patient's lifetime risk is 20% or greater. This exam was interpreted at Station ID: [id number]. NOTE: For mammograms, a report in lay terms will be sent to the patient. Approximately 15% of breast malignancies will not be visualized mammographically. In the management of a palpable breast mass, a negative mammogram must not discourage biopsy of a clinically suspicious lesion. Electronically Signed By: Escobar Tran M.D. aty/:12/06/2022 17:32:31 letter sent: Additional Imaging Needed ACR BI-RADS Category 0: Incomplete 3340F
== END ==
PROVIDERS: Family Provider Family Medicine; PCP Nurse Practitioner; Referring Provider Nurse Practitioner; Visit Provider Nurse Practitioner
DX: Z12.31 Encounter for screening mammogram for malignant neoplasm of breast (principal); Z80.3 Family history of malignant neoplasm of breast
CPT/HCPCS: 77063; 77067

== ENCOUNTER → 2022-12-18 13:39 | Outpatient (CLI) | payer OTHER, SELFPAY ==
--- NOTE | 2022-12-18 | DI.MG.S_ITS ---
UNILATERAL RIGHT DIGITAL DIAGNOSTIC MAMMOGRAM 3D/2D WITH ADDITIONAL VIEWS: 12/18/2022 CLINICAL: Additional evaluation requested from prior study. Comparison is made to exams dated: 12/06/2022 mammogram, 11/29/2021 mammogram, 05/18/2020 mammogram, and 04/01/2018 mammogram - [facility]. There are scattered areas of fibroglandular density in the right breast (category b / 25%-50% glandular tissue). There is a 1 cm oval equal density focal asymmetry in the right breast at 11 o'clock posterior depth. No other significant masses or calcifications are seen in the breast. IMPRESSION: INCOMPLETE: NEEDS ADDITIONAL IMAGING EVALUATION The 1 cm oval equal density focal asymmetry in the right breast is indeterminate. A targeted ultrasound is recommended and will immediately follow. Based on the Tyrer Cuzick model (a risk assessment model) the patient's lifetime risk is 17.3% and her 10 year risk is 3.9%. According to the ACR, ACS, and NCCN guidelines, an annual breast MRI exam along with mammogram is recommended if the patient's lifetime risk is 20% or greater. This exam was interpreted at Station ID: [id number]. NOTE: For mammograms, a report in lay terms will be sent to the patient. Approximately 15% of breast malignancies will not be visualized mammographically. In the management of a palpable breast mass, a negative mammogram must not discourage biopsy of a clinically suspicious lesion. Electronically Signed By: Corona Agee M.D. slc/:12/18/2022 14:21:02 ACR BI-RADS Category 0: Incomplete 3340F
--- NOTE | 2022-12-18 13:40 | DI.US.S_ITS ---
LIMITED ULTRASOUND OF RIGHT BREAST AND AXILLA: 12/18/2022 CLINICAL: Patient returns today to evaluate a focal asymmetry in the right breast. Comparison is made to exams dated: 12/18/2022 mammogram, 11/29/2021 mammogram, 12/06/2022 mammogram, 05/18/2020 mammogram, 04/01/2018 mammogram, and 03/03/2017 mammogram - [facility]. Color flow and real-time ultrasound of the right breast 9 o'clock, and axilla regions were performed. Hutchins scale images of the real-time examination were reviewed. There is a 1 cm x 0.8 cm x 0.6 cm oval cyst with a septated internal wall in the right breast at 9 o'clock posterior depth 14 cm from the nipple. This oval cyst is hypoechoic with a well-defined boundary, internal echoes, and posterior acoustic enhancement. This correlates with mammography findings. Color flow imaging demonstrates that there is no vascularity present. No significant abnormalities were seen sonographically in the right axilla. IMPRESSION: PROBABLY BENIGN The 1 cm cyst in the right breast is consistent with a complicated cyst and is probably benign. A follow-up mammogram and an ultrasound in 6 months is recommended to demonstrate stability. No enlarged right axillary lymph nodes. Exam findings were conveyed to the patient. This exam was interpreted at Station ID: [id number]. Electronically Signed By: Corona Agee M.D. [facility] [place]/:12/18/2022 14:28:52 letter sent: Followup Recommended Ultrasound BI-RADS: 3 Probably benign
== END ==
PROVIDERS: Family Provider Family Medicine; PCP Nurse Practitioner; Referring Provider Family Medicine; Visit Provider Family Medicine
DX: R92.8 Other abnormal and inconclusive findings on diagnostic imaging of breast (principal); N60.01 Solitary cyst of right breast
CPT/HCPCS: 76642; 77065; G0279

== ENCOUNTER → 2023-01-23 08:57 | Outpatient (CLI) | payer OTHER, SELFPAY ==
[2023-01-23 09:47] LABS: Cholesterol 229 mg/dL (140-199); HDL Cholesterol 57 mg/dL (40-60); LDL Cholesterol Calculated 142 mg/dL (<100); Triglycerides 152 mg/dL (35-150); Uric Acid 5.9 mg/dL (2.5-6.2)
[2023-01-23 09:49] LABS: Rheumatoid Factor 10.3 IU/mL (<12.0)
[2023-01-23 09:53] LABS: Add Manual Diff / Slide Review NO; Basophils Absolute Auto 0 /uL (0-100); Basophils Percent Auto 0.5 % (0-2); Eosinophils Absolute Auto 100 /uL (0-450); Eosinophils Percent Auto 1.3 % (2-4); Hemoglobin 13.7 g/dL (12.0-16.0); Lymphocytes Absolute Auto 2000 /uL (1100-4500); Lymphocytes Percent Auto 27.6 % (25-40); Mean Corpuscular HGB Conc 33.6 % (30-36); Mean Corpuscular Hemoglobin 28.9 PG (26-34); Monocytes Absolute Auto 400 /uL (0-900); Monocytes Percent Auto 4.9 % (3-14); Neutrophils Absolute Auto 4900 /uL (1500-7000); Neutrophils Percent Auto 65.7 % (50-75); Platelet Count 349 X10^3/uL (150-400); Red Blood Cell Count 4.76 X10^6/uL (4.0-5.2); Red Cell Distribution Width 14.4 % (11.6-14.8); White Blood Cell Count 7.4 X10^3/uL (4.5-11.0)
[2023-01-23 10:26] LABS: TSH w/ Reflex to FT4 1.57 uIU/mL (0.47-4.68)
[2023-01-23 10:54] LABS: Appearance Urine UA CLEAR; Bilirubin Urine UA NEGATIVE (NEGATIVE); Color Urine UA YELLOW; Glucose Urine UA NEGATIVE (Negative); Ketones Urine UA NEGATIVE (NEGATIVE); Leukocyte Esterase Urine UA NEGATIVE (NEGATIVE); Nitrite Urine UA NEGATIVE (Negative); Occult Blood Urine UA NEGATIVE (Negative); Protein Urine UA NEGATIVE (Negative); Specific Gravity Urine UA 1.025 (1.000-1.035); Urobilinogen Urine UA 0.2 E.U./dL (0.2)
[2023-01-23 10:58] LABS: pH Urine UA 5.5 (4.5-8.0)
[2023-01-23 11:07] LABS: Bacteria Urine None Seen; Culture Indicated Urine Cult Not Indicated; RBC Urine 10-30/HPF (0-5/HPF); Squamous Epithelial Cell Urine None Seen (0-5/HPF); WBC Urine None Seen (0-5/HPF)
[2023-01-23 12:20] LABS: Urine N gonorrhoeae NOT DETECTED
[2023-01-23 12:25] LABS: Urine Chlamydia NOT DETECTED
[2023-01-23 15:54] LABS: Hepatitis B Surface Antigen NEGATIVE s/c (NEGATIVE)
[2023-01-23 16:18] LABS: HIV 1 & 2 Ab/Ag 4th Gen Combo NEGATIVE (NEGATIVE); Hep C Virus Ab w/Reflex Quant NEGATIVE s/c (NEGATIVE)
[2023-01-24 07:12] LABS: RPR Screen Non Reactive (Non Reactive)
[2023-01-24 17:55] LABS: Alanine Aminotransferase 29 IU/L (<35); Albumin 4.3 g/dL (3.5-5.0); Albumin Globulin Ratio 1.3 (1.0-2.8); Alkaline Phosphatase 60 U/L (38-126); Aspartate Aminotransferase 28 IU/L (14-36); BUN Creatinine Ratio 21.2 (6-22); Bilirubin Total 0.5 mg/dL (0.2-1.3); Blood Urea Nitrogen 14 mg/dL (7-17); Calcium 9.6 mg/dL (8.4-10.2); Carbon Dioxide 26 mmol/L (22-32); Chloride 102 mmol/L (98-107); Estimated Glomerular Filt Rate > 60 mL/min (>60); Globulin 3.3 g/dL (1.7-4.1); Glucose 95 mg/dL (70-100); HEMOLYSIS < 15 (0-50); Potassium 4.5 mmol/L (3.4-5.1); Sodium 137 mmol/L (137-145); Total Protein 7.6 g/dL (6.3-8.2)
[2023-01-28 19:07] LABS: CCP Antibodies IgG/IgA 7 units (0-19)
[2023-02-04 10:06] LABS: HSV 2 IGG AB < 0.91
== END ==
PROVIDERS: Family Provider Family Medicine; PCP Nurse Practitioner; Referring Provider Family Medicine; Visit Provider Family Medicine
DX: E66.01 Morbid (severe) obesity due to excess calories (principal); G43.909 Migraine, unspecified, not intractable, without status migrainosus; G47.30 Sleep apnea, unspecified; M25.50 Pain in unspecified joint; N39.3 Stress incontinence (female) (male); N81.2 Incomplete uterovaginal prolapse; N92.6 Irregular menstruation, unspecified; R10.9 Unspecified abdominal pain; Z90.49 Acquired absence of other specified parts of digestive tract; Z11.3 Encounter for screening for infections with a predominantly sexual mode of transmission
CPT/HCPCS: 36415; 80053; 80061; 81001; 84443; 84550; 85025; 86200; 86430; 86592; 86695; 86696; 86803; 87340; 87389; 87491; 87591

== ENCOUNTER → 2023-04-15 09:58 | Outpatient (CLI) | payer OTHER, SELFPAY ==
[2023-04-15 11:24] LABS: Follicle Stimulating Hormone 11.9 mIU/mL
== END ==
PROVIDERS: Family Provider Family Medicine; PCP Nurse Practitioner; Referring Provider Family Medicine; Visit Provider Family Medicine
DX: N92.6 Irregular menstruation, unspecified (principal)
CPT/HCPCS: 36415; 83001

== ENCOUNTER → 2023-05-15 07:48 | Outpatient (CLI) | payer OTHER, SELFPAY ==
--- NOTE | 2023-05-15 07:48 | DI.US.S_ITS ---
PROCEDURE: US PELVIC COMPLETE INDICATIONS: pain, right adenexa TECHNIQUE: Real-time scanning was performed of the pelvic organs, with image documentation. Additional endovaginal scanning was necessary due to incomplete visualization of the adnexal and endometrial structures by transabdominal scanning. COMPARISON: None. FINDINGS: Uterus: Uterus is anteverted and normal in size at 8.2 x 5.8 x 3.4 cm. The myometrium is homogeneous. The endometrium measures 10 mm combined thickness. Mid anterior intramural fibroid measuring 1.1 cm. Ovaries: The right ovary measures 3.2 x 2.5 x 2.0 cm, with a calculated ovarian volume of 8.3 cc. The left ovary measures 3.8 x 2.6 x 2.3 cm, with a calculated ovarian volume of 11.9 cc. Dominant follicle in the left ovary measuring 1.6 cm. The ovaries have a normal sonographic appearance. Less than 12 follicles can be seen in each ovary. No adnexal masses are seen. Other: No pathologic free abdominal or pelvic fluid. IMPRESSION: 1. No cause for patient's pain is identified. 2. Endometrium is normal in thickness at 10 mm for a premenopausal female. 3. Intramural fibroid measuring 1.1 cm. We strive to produce accurate, complete, and clear reports of imaging services. To assist us in improving patient care, this report was composed using standard report templates and voice recognition software. Therefore, it may contain abnormal punctuation, insertions and/or omissions. Occasional wrong-word or sound-alike substitutions may occur. Though we review the report and make efforts to correct it, we do recommend that the report be read carefully in proper context to recognize any text inaccuracies. Dictated by: Jose La M.D. on 05/15/2023 at 9:33 Approved by: oJse La M.D. on 05/15/2023 at 9:36
== END ==
LOC: US 07:48
PROVIDERS: Family Provider Family Medicine; PCP Nurse Practitioner; Referring Provider Nurse Practitioner; Visit Provider Nurse Practitioner
DX: D25.1 Intramural leiomyoma of uterus (principal); R10.2 Pelvic and perineal pain
CPT/HCPCS: 76856

== ENCOUNTER → 2023-08-04 13:27 | Outpatient (CLI) | payer OTHER, SELFPAY ==
--- NOTE | 2023-08-04 13:28 | DI.US.S_ITS ---
ULTRASOUND OF RIGHT BREAST: 08/04/2023 CLINICAL: Patient returns today to evaluate a focal asymmetry in the right breast. Comparison is made to exams dated: 12/18/2022 ultrasound, 08/04/2023 mammogram, 12/18/2022 mammogram, 12/06/2022 mammogram, 11/29/2021 mammogram, and 05/18/2020 mammogram - [facility]. Real-time ultrasound of the right breast was performed on the areas of interest. Hutchins scale images of the real-time examination were reviewed. The complicated cyst in the right breast at 9 o'clock posterior depth is no longer seen. IMPRESSION: BENIGN There is no sonographic evidence of malignancy. Return to annual mammogram screening schedule is recommended. This exam was interpreted at Station ID: [id number]. Electronically Signed By: Alena florian/:08/04/2023 14:20:34 letter sent: Normal Exam Ultrasound BI-RADS: 2 Benign
--- NOTE | 2023-08-04 13:28 | DI.MG.S_ITS ---
UNILATERAL RIGHT DIGITAL DIAGNOSTIC MAMMOGRAM 3D/2D SHORT-TERM FOLLOW-UP: 08/04/2023 CLINICAL: Patient returns for a 6 month follow up of the right breast. Comparison is made to exams dated: 12/18/2022 mammogram, 12/06/2022 mammogram, and 11/29/2021 mammogram - [facility]. There are scattered areas of fibroglandular density in the right breast (category b / 25%-50% glandular tissue). The oval equal density focal asymmetry in the right breast at 10 o'clock posterior depth is no longer seen. No other significant masses or calcifications are seen in the breast. IMPRESSION: INCOMPLETE: NEEDS ADDITIONAL IMAGING EVALUATION An ultrasound is recommended to evaluate the previosly seen complicated cyst in the right breast and will be performed immediately following this exam. Based on the Tyrer Cuzick model (a risk assessment model) the patient's lifetime risk is 17.3% and her 10 year risk is 3.9%. According to the ACR, ACS, and NCCN guidelines, an annual breast MRI exam along with mammogram is recommended if the patient's lifetime risk is 20% or greater. This exam was interpreted at Station ID: [id number]. NOTE: For mammograms, a report in lay terms will be sent to the patient. Approximately 15% of breast malignancies will not be visualized mammographically. In the management of a palpable breast mass, a negative mammogram must not discourage biopsy of a clinically suspicious lesion. Electronically Signed By: Alena florian/:08/04/2023 14:17:42 ACR BI-RADS Category 0: Incomplete [id number]
== END ==
LOC: MAMMO 13:27
PROVIDERS: Family Provider Family Medicine; PCP Nurse Practitioner; Referring Provider Nurse Practitioner; Visit Provider Nurse Practitioner
DX: R92.8 Other abnormal and inconclusive findings on diagnostic imaging of breast (principal); R92.321 Mammographic fibroglandular density, right breast
CPT/HCPCS: 76642; 77065; G0279

== ENCOUNTER → 2023-08-27 09:52 | Outpatient (CLI) | payer OTHER, SELFPAY | PROVIDERS: Family Provider Family Medicine; PCP Nurse Practitioner; Referring Provider Nurse Practitioner; Visit Provider Nurse Practitioner | DX: N91.2 Amenorrhea, unspecified (principal) | CPT/HCPCS: 36415; 83001 ==

== ENCOUNTER → 2024-01-10 10:15 | Outpatient (CLI) | payer OTHER, SELFPAY ==
--- NOTE | 2024-01-10 10:16 | DI.RAD.S_ITS ---
PROCEDURE: XR KNEE LT 3V INDICATIONS: Chronic bilateral knee pain TECHNIQUE: 3 views of the knee were acquired. COMPARISON: None. FINDINGS: Bones: There are no osseous abnormalities. 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 . There are no effusions. Soft tissues: Normal IMPRESSION: Severe degeneration Dictated by: Oniel Figueroa M.D. on 01/12/2024 at 11:29 Approved by: Oniel Figueroa M.D. on 01/12/2024 at 11:29
--- NOTE | 2024-01-10 10:16 | DI.RAD.S_ITS ---
PROCEDURE: XR KNEE RT 3V INDICATIONS: Chronic bilateral knee pain TECHNIQUE: 3 views of the knee were acquired. COMPARISON: None. FINDINGS: Bones: There are no osseous abnormalities. 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 Small effusion noted. Soft tissues: Normal IMPRESSION: Severe degeneration Dictated by: Oniel Figueroa M.D. on 01/12/2024 at 11:23 Approved by: Oniel Figueroa M.D. on 01/12/2024 at 11:24
== END ==
PROVIDERS: Family Provider Family Medicine; PCP Nurse Practitioner; Referring Provider Nurse Practitioner; Visit Provider Nurse Practitioner
DX: M17.0 Bilateral primary osteoarthritis of knee (principal); M25.561 Pain in right knee; M25.562 Pain in left knee; E66.01 Morbid (severe) obesity due to excess calories; Z68.43 Body mass index [BMI] 50.0-59.9, adult
CPT/HCPCS: 73562

== ENCOUNTER → 2024-01-20 16:13 | Outpatient (CLI) | payer OTHER, SELFPAY ==
--- NOTE | 2024-01-20 16:15 | DI.RAD.S_ITS ---
PROCEDURE: XR ABDOMEN MIN 2V INDICATIONS: L side pain, eval for stool backup TECHNIQUE: 2 views of the abdomen were acquired. COMPARISON: None. FINDINGS: Surgical changes and devices: Surgical clip just to the right of midline within the mid pelvis. Right upper quadrant cholecystectomy clips.. Bowel: No pneumoperitoneum. The bowel gas pattern is normal except for mild colonic obstipation greater on the right than the left. Soft tissues: No masses; visualized solid organ contours appear normal in size. No suspicious abdominal calcifications. Bones: No suspicious bony abnormalities. IMPRESSION: Non-obstructive bowel gas pattern. Mild colonic obstipation, right greater than left. Dictated by: Ariel Matute M.D. on 01/22/2024 at 11:24 Approved by: Ariel Matute M.D. on 01/22/2024 at 11:25
[2024-01-20 17:48] LABS: Add Manual Diff / Slide Review NO; Basophils Absolute Auto 0 /uL (0-100); Basophils Percent Auto 0.5 % (0-2); Eosinophils Absolute Auto 200 /uL (0-450); Eosinophils Percent Auto 1.7 % (2-4); Hematocrit 39.9 % (36-46); Hemoglobin 13.6 g/dL (12.0-16.0); Lymphocytes Absolute Auto 2300 /uL (1100-4500); Mean Corpuscular HGB Conc 33.9 % (30-36); Mean Corpuscular Hemoglobin 30.3 PG (26-34); Mean Corpuscular Volume 89.4 fL (80-100); Monocytes Absolute Auto 400 /uL (0-900); Monocytes Percent Auto 4.8 % (3-14); Neutrophils Absolute Auto 6300 /uL (1500-7000); Platelet Count 369 X10^3/uL (150-400); Red Blood Cell Count 4.47 X10^6/uL (4.0-5.2); Red Cell Distribution Width 13.8 % (11.6-14.8); White Blood Cell Count 9.3 X10^3/uL (4.5-11.0)
[2024-01-20 18:56] LABS: Alanine Aminotransferase 22 IU/L (<35); Albumin Globulin Ratio 1.3 (1.0-2.8); Alkaline Phosphatase 61 U/L (38-126); Aspartate Aminotransferase 24 IU/L (14-36); Bilirubin Total 0.5 mg/dL (0.2-1.3); Blood Urea Nitrogen 18 mg/dL (7-17); Calcium 9.5 mg/dL (8.4-10.2); Carbon Dioxide 26 mmol/L (22-32); Chloride 104 mmol/L (98-107); Estimated Glomerular Filt Rate > 60 mL/min (>60); Globulin 3.2 g/dL (1.7-4.1); Glucose 86 mg/dL (70-100); HEMOLYSIS < 15 (0-50); Lipase 243 U/L (23-300); Potassium 4.5 mmol/L (3.4-5.1); Sodium 137 mmol/L (137-145); Total Protein 7.2 g/dL (6.3-8.2)
[2024-01-20 19:20] LABS: Urine N gonorrhoeae NOT DETECTED
[2024-01-20 19:54] LABS: Urine Chlamydia NOT DETECTED
[2024-01-22 02:13] LABS: HSV 2 IGG AB < 0.91 index (0.00-0.90)
[2024-01-22 07:37] LABS: RPR Screen Non Reactive (Non Reactive)
[2024-01-22 16:17] LABS: Hepatitis B Surface Antigen NEGATIVE s/c (NEGATIVE)
[2024-01-22 16:42] LABS: HIV 1 & 2 Ab/Ag 4th Gen Combo NEGATIVE (NEGATIVE); Hep C Virus Ab w/Reflex Quant NEGATIVE s/c (NEGATIVE)
== END ==
PROVIDERS: Family Provider Family Medicine; PCP Registered Nurse Diabetes Educator; Referring Provider Registered Nurse Diabetes Educator; Visit Provider Registered Nurse Diabetes Educator
DX: R10.9 Unspecified abdominal pain (principal); Z72.51 High risk heterosexual behavior; K59.00 Constipation, unspecified
CPT/HCPCS: 36415; 74019; 80053; 83690; 85025; 86592; 86695; 86696; 86803; 87340; 87389; 87491; 87591

== ENCOUNTER → 2024-01-21 07:10 | Outpatient (CLI) | payer OTHER, SELFPAY ==
[2024-01-21 08:30] LABS: Appearance Urine UA CLEAR; Bilirubin Urine UA NEGATIVE (NEGATIVE); Color Urine UA YELLOW; Glucose Urine UA NEGATIVE (Negative); Ketones Urine UA NEGATIVE (NEGATIVE); Leukocyte Esterase Urine UA NEGATIVE (NEGATIVE); Nitrite Urine UA NEGATIVE (Negative); Occult Blood Urine UA NEGATIVE (Negative); Protein Urine UA NEGATIVE (Negative); Specific Gravity Urine UA 1.015 (1.000-1.035); Urobilinogen Urine UA 0.2 E.U./dL (0.2)
[2024-01-21 08:31] LABS: pH Urine UA 6.5 (4.5-8.0)
[2024-01-21 08:32] LABS: Urine Volume 10mL (spun)
[2024-01-21 08:35] LABS: Bacteria Urine None Seen; Culture Indicated Urine Cult Not Indicated; RBC Urine None Seen (0-5/HPF); Squamous Epithelial Cell Urine None Seen (0-5/HPF); WBC Urine None Seen (0-5/HPF)
== END ==
PROVIDERS: Family Provider Family Medicine; PCP Registered Nurse Diabetes Educator; Referring Provider Registered Nurse Diabetes Educator; Visit Provider Registered Nurse Diabetes Educator
DX: Z72.51 High risk heterosexual behavior (principal); R10.9 Unspecified abdominal pain
CPT/HCPCS: 81001

== ENCOUNTER → 2024-04-02 07:36 | Outpatient (CLI) | payer OTHER, SELFPAY ==
--- NOTE | 2024-04-02 07:37 | DI.MG.S_ITS ---
BILATERAL DIGITAL SCREENING MAMMOGRAM 3D/2D WITH CAD: 04/02/2024 CLINICAL: Routine screening. Family history of breast cancer. Comparison is made to exams dated: 12/06/2022 mammogram, 11/29/2021 mammogram, 05/18/2020 mammogram, 08/04/2023 mammogram, and 12/18/2022 mammogram - [facility]. There are scattered areas of fibroglandular density (category b / 25%-50% glandular tissue). Current study was also evaluated with a Computer Aided Detection (CAD) system. No significant masses, calcifications, or other findings are seen in either breast. There has been no significant interval change. IMPRESSION: NEGATIVE There is no mammographic evidence of malignancy. A 1 year screening mammogram is recommended. Based on Tyrer-Cuzick model (a risk assessment model), the patient's lifetime risk is 21.1% and her 10 year risk is 5.0%. If a patient has an elevated risk, a more comprehensive evaluation should be considered and/or a referral to a genetic counselor. The [place] [employer], [place] [employer], and NCCN Guidelines advise the consideration of Breast MRI as an adjunct to screening mammography in patients whose Lifetime risk to develop breast cancer is 20% or higher. This exam was interpreted at Station ID: [id number]. NOTE: For mammograms, a report in lay terms will be sent to the patient. Approximately 15% of breast malignancies will not be visualized mammographically. In the management of a palpable breast mass, a negative mammogram must not discourage biopsy of a clinically suspicious lesion. Electronically Signed By: Bruce freitas/martin:04/02/2024 12:07:09 letter sent: Normal Exam ACR BI-RADS Category 1: Negative
[2024-04-02 09:41] LABS: Add Manual Diff / Slide Review NO; Basophils Absolute Auto 0 /uL (0-100); Basophils Percent Auto 0.5 % (0-2); Eosinophils Absolute Auto 200 /uL (0-450); Eosinophils Percent Auto 2.1 % (2-4); Hematocrit 41.7 % (36-46); Hemoglobin 13.8 g/dL (12.0-16.0); Lymphocytes Absolute Auto 2200 /uL (1100-4500); Lymphocytes Percent Auto 26.2 % (25-40); Mean Corpuscular HGB Conc 33.1 % (30-36); Mean Corpuscular Hemoglobin 29.4 PG (26-34); Mean Corpuscular Volume 88.9 fL (80-100); Monocytes Absolute Auto 500 /uL (0-900); Monocytes Percent Auto 6.3 % (3-14); Neutrophils Absolute Auto 5400 /uL (1500-7000); Neutrophils Percent Auto 64.9 % (50-75); Platelet Count 332 X10^3/uL (150-400); Red Blood Cell Count 4.69 X10^6/uL (4.0-5.2); Red Cell Distribution Width 14.4 % (11.6-14.8); White Blood Cell Count 8.3 X10^3/uL (4.5-11.0)
[2024-04-02 11:12] LABS: Alanine Aminotransferase 24 IU/L (<35); Albumin 4.2 g/dL (3.5-5.0); Albumin Globulin Ratio 1.6 (1.0-2.8); Alkaline Phosphatase 52 U/L (38-126); Aspartate Aminotransferase 27 IU/L (14-36); BUN Creatinine Ratio 29.3 (6-22); Bilirubin Total 0.6 mg/dL (0.2-1.3); Blood Urea Nitrogen 22 mg/dL (7-17); Calcium 9.3 mg/dL (8.4-10.2); Carbon Dioxide 25 mmol/L (22-32); Chloride 105 mmol/L (98-107); Cholesterol 222 mg/dL (140-199); Estimated Glomerular Filt Rate > 60 mL/min (>60); Globulin 2.6 g/dL (1.7-4.1); Glucose 92 mg/dL (70-100); HDL Cholesterol 59 mg/dL (40-60); HEMOLYSIS < 15 (0-50); LDL Cholesterol Calculated 143 mg/dL (<100); Potassium 4.4 mmol/L (3.4-5.1); Sodium 136 mmol/L (137-145); Total Protein 6.8 g/dL (6.3-8.2); Triglycerides 101 mg/dL (35-150)
[2024-04-02 11:26] LABS: Free T3, Triiodothyronine Free 3.28 pg/mL (2.77-5.27); Free T4, Direct Thyroxine 0.94 ng/dL (0.78-2.19)
[2024-04-02 11:39] LABS: Thyroid Stimulating Hormone 1.54 uIU/mL (0.47-4.68)
[2024-04-02 11:46] LABS: Creatinine Urine Random 196.25 mg/dL
[2024-04-02 11:50] LABS: Microalbumin Urine Random 1.1 mg/dL (0-1.6)
== END ==
PROVIDERS: Nurse Practitioner; Family Provider Family Medicine; PCP Registered Nurse Diabetes Educator; Referring Provider Registered Nurse Diabetes Educator; Visit Provider Registered Nurse Diabetes Educator
DX: Z12.31 Encounter for screening mammogram for malignant neoplasm of breast (principal); Z00.00 Encounter for general adult medical examination without abnormal findings; Z80.3 Family history of malignant neoplasm of breast
CPT/HCPCS: 36415; 77063; 77067; 80053; 80061; 82043; 82570; 84439; 84443; 84481; 85025

== ENCOUNTER 2024-04-18 13:43 | Emergency (ER) | payer OTHER, SELFPAY ==
[2024-04-18] VITALS (18 sets, daily range): BP systolic 124–172; BP diastolic 60–82; PULSE 54–89; RESP 12–28; TEMP 36.6; O2SAT 97–100; BMI 49.2
--- NOTE | 2024-04-18 13:55 | EKG_ITS ---
[address] [address] Test Date: 2024-04-18 Pat Name: Erin Rangel Department: Room: Gender: Female Care Advocate: viktor : 1975 Requested By: Order Number: [id number] Reading MD: Mejia Lucas Measurements Intervals [place] Rate: 49 P: 24 MD: 142 QRS: 21 QRSD: 106 T: 19 QT: 442 QTc: 399 Interpretive Statements Sinus bradycardia Low voltage QRS Electronically Signed On 04-19-2024 11:17:37 PST by Mejia Lucas
[2024-04-18 14:09] LABS: Add Manual Diff / Slide Review NO; Basophils Absolute Auto 100 /uL (0-100); Basophils Percent Auto 0.8 % (0-2); Eosinophils Absolute Auto 100 /uL (0-450); Eosinophils Percent Auto 0.7 % (2-4); Hematocrit 41.3 % (36-46); Hemoglobin 13.5 g/dL (12.0-16.0); Lymphocytes Absolute Auto 3600 /uL (1100-4500); Lymphocytes Percent Auto 32.8 % (25-40); Mean Corpuscular HGB Conc 32.8 % (30-36); Mean Corpuscular Volume 88.3 fL (80-100); Monocytes Absolute Auto 500 /uL (0-900); Monocytes Percent Auto 4.2 % (3-14); Neutrophils Absolute Auto 6800 /uL (1500-7000); Neutrophils Percent Auto 61.5 % (50-75); Platelet Count 341 X10^3/uL (150-400); Red Blood Cell Count 4.67 X10^6/uL (4.0-5.2); Red Cell Distribution Width 14.3 % (11.6-14.8)
--- NOTE | 2024-04-18 14:11 | PC.NURSE ---
patient has a history of having upper GI upset after having her gallbaldder removed several years ago. she states this episode is similar to the previous episodes. She is nauseated with upper abd pain and tenderness under her left ribs and a little abd tenderness and pain on her right side. no lower abd pain. breathe sounds are equal and clear bilaterally throughout. her heart rate is 59 and sinus on the case monitor.
[2024-04-18 14:21] LABS: Alanine Aminotransferase 24 IU/L (<35); Albumin 4.2 g/dL (3.5-5.0); Albumin Globulin Ratio 1.5 (1.0-2.8); Alkaline Phosphatase 55 U/L (38-126); Aspartate Aminotransferase 30 IU/L (14-36); BUN Creatinine Ratio 20.5 (6-22); Bilirubin Total 0.5 mg/dL (0.2-1.3); Blood Urea Nitrogen 16 mg/dL (7-17); Calcium 9.2 mg/dL (8.4-10.2); Carbon Dioxide 23 mmol/L (22-32); Chloride 106 mmol/L (98-107); Estimated Glomerular Filt Rate > 60 mL/min (>60); Globulin 2.8 g/dL (1.7-4.1); Glucose 127 mg/dL (70-100); HEMOLYSIS < 15 (0-50); Lipase 99 U/L (23-300); Potassium 3.9 mmol/L (3.4-5.1); Sodium 137 mmol/L (137-145)
--- NOTE | 2024-04-18 14:22 | DI.RAD.S_ITS ---
PROCEDURE: XR CHEST 1V INDICATIONS: chest tightness TECHNIQUE: One view of the chest was acquired. COMPARISON: [facility], CR, XR CHEST 1V, 05/08/2020, 18:17. FINDINGS: Surgical changes and devices: None. Lungs and pleura: An incomplete inspiratory result is noted, causing a crowded appearance to the lung markings. No focal infiltrates are seen. No pneumothorax or significant pleural effusions are seen. Mediastinum: Mediastinal contours appear normal. Heart size is near the upper limits of normal for portable technique. Bones and chest wall: No suspicious bony lesions. Age-appropriate bony degenerative changes are seen. Overlying soft tissues appear unremarkable. IMPRESSION: Limited portable chest examination, without a significant cardiopulmonary abnormality identified. Dictated by: Zachariah Garcia M.D. on 04/18/2024 at 13:44 Approved by: Zachariah Garcia M.D. on 04/18/2024 at 13:45
[2024-04-18 14:52] LABS: Troponin I < 0.012 ng/mL (0.01-0.034)
--- NOTE | 2024-04-18 15:29 | ED.CHESTPAIN ---
HPI - Chest Pain <Shanita Carrion PA-C - Last Filed: 04/18/24 20:08> General Chief Complaint: Chest Pain Stated Complaint: Chest pain/acute epigastric Time Seen by Provider: 04/18/24 15:28 Source: EMS Mode of arrival: Ambulatory History of Present Illness HPI narrative: Ms. Rangel is a very pleasant 48-year-old female with a past medical history of ANKIT, obesity on tirzepatide, migraine headaches, osteoarthritis, cholecystectomy, appendectomy who presents to the emergency department via EMS for epigastric abdominal pain radiating to the chest that occurred just prior to arrival. Patient states she had an episode of epigastric and chest pain yesterday that resolved on its own. Today she developed epigastric abdominal pain radiating to the chest, left upper quadrant of the abdomen and right upper quadrant of the abdomen that occurred approximately 10 minutes after intercourse. Yesterday's episode occurred at rest. States that the pain feels similar to when she had biliary duct obstruction from gallstones however she had her gallbladder removed 25 years ago. Admits to subjective nausea. States that she did take her weekly Tirzepatide injection this morning. Admits to gastric ulcer during her adolescence but denies any current gastric ulcer or regular NSAID use. No bloody or black stools. No dysuria. No shortness of breath or lower extremity swelling or pain. No history of CAD or VTE. She does not smoke. Related Data Home Medications Medication Instructions Recorded Confirmed albuterol sulfate 90 mcg/actuation 1 puff inhalation Q4-6H PRN 05/31/18 03/10/24 aerosol inhaler Shortness Of Breath berberine chloride 500 mg capsule mg PO 01/20/24 03/10/24 calcium carbonate 600 mg PO DAILY 01/20/24 03/10/24 cholecalciferol (vitamin D3) 25 25 mcg PO DAILY 01/20/24 03/10/24 mcg (1,000 unit) capsule glucosam 750 mg-chondroi 100 tab PO 01/20/24 03/10/24 mg-hyalur 1.65 mg-CF borate 108 mg tablet ([employer]) magnesium citrate 125 mg capsule 250 mg PO DAILY 01/20/24 03/10/24 mecobalamin (vitamin B12) 1,000 1,000 mcg PO DAILY 01/20/24 03/10/24 mcg chewable tablet melatonin 3 mg capsule 3 mg PO BEDTIME PRN 01/20/24 03/10/24 omega-3 fatty acids 500 mg capsule 500 mg PO DAILY 01/20/24 03/10/24 potassium gluconate 550 mg (90 mg) 550 mg PO DAILY 01/20/24 03/10/24 tablet saw palmetto 450 mg capsule 450 mg PO BID 01/20/24 03/10/24 turmeric 400 mg capsule mg PO 01/20/24 03/10/24 zinc gluconate 30 mg tablet 30 mg PO DAILY 01/20/24 03/10/24 Previous Rx's Medication Instructions Recorded acyclovir 400 mg tablet 400 mg PO BID #180 tabs 11/27/23 meloxicam 15 mg tablet 15 mg PO DAILY #90 tabs 11/27/23 Tirzepatide 2.5 mg SUBCUT QWEEK #9 mL 01/26/24 Disabled Parking Permit #1 ea 02/09/24 ondansetron 4 mg disintegrating 4 mg PO Q8H PRN nausea and 04/18/24 tablet vomiting #14 tabs pantoprazole 20 mg tablet,delayed 20 mg PO DAILY 14 days #14 tabs 04/18/24 release (Protonix) Allergies Allergy/AdvReac Type Severity Reaction Status Date / Time adhesive Allergy Intermediate Rash Verified 03/10/24 08:23 Pertussis Vaccines Allergy Unknown Verified 03/10/24 08:23 Review of Systems <Shanita Carrion PA-C - Last Filed: 04/18/24 20:08> Review of Systems ROS Unobtainable: All systems reviewed & are unremarkable except as noted in HPI and below Patient History <Shanita Carrion PA-C - Last Filed: 04/18/24 20:08> Medical History Bilateral primary osteoarthritis of knee Allergy to adhesive Perimenopause Insomnia ANKIT (obstructive sleep apnea) Class 3 severe obesity due to excess calories in adult Depression Headache Chicken pox Painful menstrual periods Infertility Oral herpes Heavy menstrual period Abnormal Pap smear of cervix JOYCE (stress urinary incontinence, female) (~2021) Cold sore Knee pain Sleep apnea Seizure Migraines Ovarian cyst Irregular menstrual cycle Human papilloma virus Recurrent abdominal pain Surgical History Anesthesia Perirectal abscess (~2015) History of appendectomy (~2014) History of cholecystectomy (~2000) Family History Mother Cancer Diabetes mellitus History of heart disease Hypertension Hyperlipidemia Mental health problem COPD (chronic obstructive pulmonary disease) Obesity Father Hypertension Social History Smoking Status: Never smoker Smoking Status: Never smoker alcohol intake frequency: 0-2 drinks per day Exam <Shanita Carrion PA-C - Last Filed: 04/18/24 20:08> Narrative Exam Narrative: GENERAL: 48 year old patient appears stated age. Obese patient, in no acute distress. HEAD: Atraumatic. Normocephalic. NECK: Trachea midline. Cervical ROM intact. CARDIOVASCULAR: Regular rate and rhythm. RESPIRATORY: ?Nonlabored respirations. ?Speaking in clear, full sentences. ?Clear to auscultation. Breath sounds equal bilaterally. No wheezes, rales, or rhonchi. ? GASTROINTESTINAL: Epigastric abdominal tenderness present and also left upper quadrant tenderness. No rebound or guarding. Abdomen soft with normal bowel sounds. EXTREMITIES: No edema or joint tenderness. NEURO: AOx3. ?Clear speech. ?Moves all 4 extremities appropriately. SKIN: No rash or erythema of visible areas Initial Vital Signs Initial Vital Signs: Vital Signs Pulse Rate 56 L 04/18/24 13:51 Respiratory Rate 22 04/18/24 13:51 Pulse Oximetry 99 04/18/24 13:51 <José Morris MD - Last Filed: 04/18/24 20:27> Initial Vital Signs Initial Vital Signs: Vital Signs Pulse Rate 56 L 04/18/24 13:51 Respiratory Rate 22 04/18/24 13:51 Pulse Oximetry 99 04/18/24 13:51 Scores <Shanita Carrion PA-C - Last Filed: 04/18/24 20:08> HEART Score Heart Score history: Slightly Suspicious Heart Score EKG: Normal Heart Score Age: 45-64 years old Heart Score risk factors: 1-2 risk factors Heart Score troponin: < or = to normal limit Heart Score Total: 2 PERC Score Age greater than or equal to 50 years: No Heart rate greater than or equal to 100 bpm: No Room Air O2 Sat less than 95%: No Unilateral leg swelling: No Recent trauma or surgery: No Hemoptysis: No Prior PE or DVT: No Hormone Use: No Total PERC Score: 0 <José Morris MD - Last Filed: 04/18/24 20:27> HEART Score Heart Score Total: 2 PERC Score Total PERC Score: 0 Course <Shanita Carrion PA-C - Last Filed: 04/18/24 20:08> Orders Ordered: ED Orders 04/18/24 13:57 Troponin I Stat 04/18/24 14:01 Complete Blood Count AUTO DIFF Stat Comprehensive Metabolic Panel Stat Lipase Stat EKG-12 Lead Stat 04/18/24 14:22 XR chest 1V Stat 04/18/24 15:48 Urine Microscopic Stat 04/18/24 15:49 CT abdomen pelvis w con Stat 04/18/24 16:23 Trop I [Troponin I] Stat 04/18/24 16:30 EKG-12 Lead Stat 04/18/24 17:25 Lactate (Lactic Acid) Stat Discontinued Medications Al Hydrox/Mg Hydrox/Simethicone 20 ml/ Lidocaine HCl 15 ml 0 ml PO NOW ONE Stop: 04/18/24 15:51 Last Admin: 04/18/24 15:56 Dose: 35 ml Documented By: ARNEL Hydromorphone HCl (Hydromorphone 0.5 Mg Inj) 0.5 mg IV NOW ONE Stop: 04/18/24 17:13 Last Admin: 04/18/24 17:14 Dose: 0.5 mg Documented By: ARNEL Morphine Sulfate (Morphine 4 Mg/Ml Inj) 4 mg IV NOW ONE Stop: 04/18/24 15:50 Last Admin: 04/18/24 16:52 Dose: 4 mg Documented By: EMBER Ondansetron HCl (Ondansetron 4 Mg/2 Ml Inj) 4 mg IV NOW PRN PRN Reason: Nausea And Vomiting Last Admin: 04/18/24 17:16 Dose: 4 mg Documented By: ARNEL Ondansetron HCl (Ondansetron 4 Mg Odt) 4 mg PO NOW PRN PRN Reason: Nausea And Vomiting Ondansetron HCl (Ondansetron 4 Mg/2 Ml Inj) 4 mg IV NOW ONE Stop: 04/18/24 15:50 Last Admin: 04/18/24 15:56 Dose: 4 mg Documented By: ARNEL Ondansetron HCl (Ondansetron 4 Mg Odt Prepack) 1 bottle MISC DIRECTED ONE Stop: 04/18/24 19:13 Last Admin: 04/18/24 19:27 Dose: 1 bottle Documented By: ARNEL Reevaluation(s) Reevaluation #1: Checked on patient due to return of severe epigastric abdominal pain. States that morphine and GI cocktail did not help her. She is requesting Dilaudid. CT scan reviewed which reveals mild biliary gas which is not considered to be pathologic. Fat containing periumbilical hernia with mild surrounding inflammatory change. We will add on lactic. Time: 17:14 Vital Signs Vital signs: Vital Signs - 8 hr 04/18/24 13:51 04/18/24 13:53 04/18/24 14:00 Temperature 97.8 F Pulse Rate 56 L 59 L Respiratory Rate 22 21 Blood Pressure 142/80 H 150/65 H Pulse Oximetry 99 100 Oxygen Delivery Method Room Air 04/18/24 14:00 04/18/24 14:30 04/18/24 14:30 Temperature Pulse Rate 55 L 70 74 Respiratory Rate 18 22 26 H Blood Pressure 162/72 H Pulse Oximetry 100 100 100 Oxygen Delivery Method Room Air 04/18/24 14:31 04/18/24 14:31 04/18/24 15:00 Temperature Pulse Rate 69 59 L Respiratory Rate 28 H 15 Blood Pressure 162/72 H Pulse Oximetry 100 100 Oxygen Delivery Method 04/18/24 15:01 04/18/24 15:01 04/18/24 15:30 Temperature Pulse Rate 58 L 56 L Respiratory Rate 18 16 Blood Pressure 166/82 H Pulse Oximetry 100 100 Oxygen Delivery Method 04/18/24 15:31 04/18/24 15:31 04/18/24 16:02 Temperature Pulse Rate 54 L 89 Respiratory Rate 17 Blood Pressure 172/79 H Pulse Oximetry 100 100 Oxygen Delivery Method 04/18/24 16:07 04/18/24 16:07 04/18/24 16:30 Temperature Pulse Rate 76 65 Respiratory Rate 18 19 Blood Pressure 128/61 Pulse Oximetry 100 100 Oxygen Delivery Method 04/18/24 16:30 04/18/24 17:00 04/18/24 17:00 Temperature Pulse Rate 62 Respiratory Rate 24 Blood Pressure 135/74 125/65 Pulse Oximetry 100 Oxygen Delivery Method 04/18/24 17:25 04/18/24 17:25 04/18/24 17:30 Temperature Pulse Rate 61 62 Respiratory Rate 12 15 Blood Pressure 125/60 Pulse Oximetry 100 99 Oxygen Delivery Method 04/18/24 17:30 04/18/24 18:00 04/18/24 18:00 Temperature Pulse Rate 80 Respiratory Rate 14 Blood Pressure 124/64 133/73 Pulse Oximetry 97 Oxygen Delivery Method 04/18/24 18:30 04/18/24 18:30 04/18/24 19:48 Temperature Pulse Rate 79 66 Respiratory Rate 19 21 Blood Pressure 130/65 139/67 Pulse Oximetry 98 99 Oxygen Delivery Method Room Air <José Morris MD - Last Filed: 04/18/24 20:27> Orders Ordered: ED Orders 04/18/24 13:57 Troponin I Stat 04/18/24 14:01 Complete Blood Count AUTO DIFF Stat Comprehensive Metabolic Panel Stat Lipase Stat EKG-12 Lead Stat 04/18/24 14:22 XR chest 1V Stat 04/18/24 15:48 Urine Microscopic Stat 04/18/24 15:49 CT abdomen pelvis w con Stat 04/18/24 16:23 Trop I [Troponin I] Stat 04/18/24 16:30 EKG-12 Lead Stat 04/18/24 17:25 Lactate (Lactic Acid) Stat Discontinued Medications Al Hydrox/Mg Hydrox/Simethicone 20 ml/ Lidocaine HCl 15 ml 0 ml PO NOW ONE Stop: 04/18/24 15:51 Last Admin: 04/18/24 15:56 Dose: 35 ml Documented By: ARNEL Hydromorphone HCl (Hydromorphone 0.5 Mg Inj) 0.5 mg IV NOW ONE Stop: 04/18/24 17:13 Last Admin: 04/18/24 17:14 Dose: 0.5 mg Documented By: ARNEL Morphine Sulfate (Morphine 4 Mg/Ml Inj) 4 mg IV NOW ONE Stop: 04/18/24 15:50 Last Admin: 04/18/24 16:52 Dose: 4 mg Documented By: EMBER Ondansetron HCl (Ondansetron 4 Mg/2 Ml Inj) 4 mg IV NOW PRN PRN Reason: Nausea And Vomiting Last Admin: 04/18/24 17:16 Dose: 4 mg Documented By: ARNEL Ondansetron HCl (Ondansetron 4 Mg Odt) 4 mg PO NOW PRN PRN Reason: Nausea And Vomiting Ondansetron HCl (Ondansetron 4 Mg/2 Ml Inj) 4 mg IV NOW ONE Stop: 04/18/24 15:50 Last Admin: 04/18/24 15:56 Dose: 4 mg Documented By: ARNEL Ondansetron HCl (Ondansetron 4 Mg Odt Prepack) 1 bottle MISC DIRECTED ONE Stop: 04/18/24 19:13 Last Admin: 04/18/24 19:27 Dose: 1 bottle Documented By: ARNEL Vital Signs Vital signs: Vital Signs - 8 hr 04/18/24 13:51 04/18/24 13:53 04/18/24 14:00 Temperature 97.8 F Pulse Rate 56 L 59 L Respiratory Rate 22 21 Blood Pressure 142/80 H 150/65 H Pulse Oximetry 99 100 Oxygen Delivery Method Room Air 04/18/24 14:00 04/18/24 14:30 04/18/24 14:30 Temperature Pulse Rate 55 L 70 74 Respiratory Rate 18 22 26 H Blood Pressure 162/72 H Pulse Oximetry 100 100 100 Oxygen Delivery Method Room Air 04/18/24 14:31 04/18/24 14:31 04/18/24 15:00 Temperature Pulse Rate 69 59 L Respiratory Rate 28 H 15 Blood Pressure 162/72 H Pulse Oximetry 100 100 Oxygen Delivery Method 04/18/24 15:01 04/18/24 15:01 04/18/24 15:30 Temperature Pulse Rate 58 L 56 L Respiratory Rate 18 16 Blood Pressure 166/82 H Pulse Oximetry 100 100 Oxygen Delivery Method 04/18/24 15:31 04/18/24 15:31 04/18/24 16:02 Temperature Pulse Rate 54 L 89 Respiratory Rate 17 Blood Pressure 172/79 H Pulse Oximetry 100 100 Oxygen Delivery Method 04/18/24 16:07 04/18/24 16:07 04/18/24 16:30 Temperature Pulse Rate 76 65 Respiratory Rate 18 19 Blood Pressure 128/61 Pulse Oximetry 100 100 Oxygen Delivery Method 04/18/24 16:30 04/18/24 17:00 04/18/24 17:00 Temperature Pulse Rate 62 Respiratory Rate 24 Blood Pressure 135/74 125/65 Pulse Oximetry 100 Oxygen Delivery Method 04/18/24 17:25 04/18/24 17:25 04/18/24 17:30 Temperature Pulse Rate 61 62 Respiratory Rate 12 15 Blood Pressure 125/60 Pulse Oximetry 100 99 Oxygen Delivery Method 04/18/24 17:30 04/18/24 18:00 04/18/24 18:00 Temperature Pulse Rate 80 Respiratory Rate 14 Blood Pressure 124/64 133/73 Pulse Oximetry 97 Oxygen Delivery Method 04/18/24 18:30 04/18/24 18:30 04/18/24 19:48 Temperature Pulse Rate 79 66 Respiratory Rate 19 21 Blood Pressure 130/65 139/67 Pulse Oximetry 98 99 Oxygen Delivery Method Room Air MDM - Chest Pain <Shanita Carrion PA-C - Last Filed: 04/18/24 20:08> Medical Records Data Attestation: I reviewed the patient's medical records. Lab Data 04/18/24 14:01 04/18/24 14:01 Labs: Lab Results 04/18/24 04/18/24 04/18/24 Range/Units 13:57 14:01 15:48 WBC 11.0 (4.5-11.0) X10^3/uL RBC 4.67 (4.0-5.2) X10^6/uL Hgb 13.5 (12.0-16.0) g/dL Hct 41.3 (36-46) % MCV 88.3 (80-100) fL MCH 29.0 (26-34) PG MCHC 32.8 (30-36) % RDW 14.3 (11.6-14.8) % Plt Count 341 (150-400) X10^3/uL Neut % (Auto) 61.5 (50-75) % Lymph % (Auto) 32.8 (25-40) % [place] % (Auto) 4.2 (3-14) % Eos % (Auto) 0.7 L (2-4) % Baso % (Auto) 0.8 (0-2) % Neut # (Auto) 6800 (8455-9070) /uL Lymph # (Auto) 3600 (3761-0350) /uL [place] # (Auto) 500 (0-900) /uL Eos # (Auto) 100 (0-450) /uL Baso # (Auto) 100 (0-100) /uL Sodium 137 (137-145) mmol/L Potassium 3.9 (3.4-5.1) mmol/L Chloride 106 (98-107) mmol/L Carbon Dioxide 23 (22-32) mmol/L BUN 16 (7-17) mg/dL Creatinine 0.78 (0.52-1.04) mg/dL Estimated GFR > 60 (>60) mL/min BUN/Creatinine Ratio 20.5 (6-22) Glucose 127 H (70-100) mg/dL Lactate (0.7-2.1) mmol/L Calcium 9.2 (8.4-10.2) mg/dL Total Bilirubin 0.5 (0.2-1.3) mg/dL AST 30 (14-36) IU/L ALT 24 (<35) IU/L Alkaline Phosphatase 55 (38-126) U/L Troponin I < 0.012 (0.01-0.034) ng/mL Total Protein 7.0 (6.3-8.2) g/dL Albumin 4.2 (3.5-5.0) g/dL Globulin 2.8 (1.7-4.1) g/dL Albumin/Globulin Ratio 1.5 (1.0-2.8) Lipase 99 (23-300) U/L Urine RBC None seen (0-5/HPF) Urine WBC 0-1/hpf (0-5/HPF) Ur Squamous Epith Cells 0-1 /hpf (0-5/HPF) Amorphous Sediment 1+ Urine Bacteria Moderate (10-30) H (None) Ur Culture Indicated? Cult not indicated Vol Urine Centrifuged 10ml (spun) 04/18/24 04/18/24 Range/Units 16:23 17:25 WBC (4.5-11.0) X10^3/uL RBC (4.0-5.2) X10^6/uL Hgb (12.0-16.0) g/dL Hct (36-46) % MCV (80-100) fL MCH (26-34) PG MCHC (30-36) % RDW (11.6-14.8) % Plt Count (150-400) X10^3/uL Neut % (Auto) (50-75) % Lymph % (Auto) (25-40) % [place] % (Auto) (3-14) % Eos % (Auto) (2-4) % Baso % (Auto) (0-2) % Neut # (Auto) (8036-6108) /uL Lymph # (Auto) (6901-8080) /uL [place] # (Auto) (0-900) /uL Eos # (Auto) (0-450) /uL Baso # (Auto) (0-100) /uL Sodium (137-145) mmol/L Potassium (3.4-5.1) mmol/L Chloride (98-107) mmol/L Carbon Dioxide (22-32) mmol/L BUN (7-17) mg/dL Creatinine (0.52-1.04) mg/dL Estimated GFR (>60) mL/min BUN/Creatinine Ratio (6-22) Glucose (70-100) mg/dL Lactate 1.6 (0.7-2.1) mmol/L Calcium (8.4-10.2) mg/dL Total Bilirubin (0.2-1.3) mg/dL AST (14-36) IU/L ALT (<35) IU/L Alkaline Phosphatase (38-126) U/L Troponin I < 0.012 (0.01-0.034) ng/mL Total Protein (6.3-8.2) g/dL Albumin (3.5-5.0) g/dL Globulin (1.7-4.1) g/dL Albumin/Globulin Ratio (1.0-2.8) Lipase (23-300) U/L Urine RBC (0-5/HPF) Urine WBC (0-5/HPF) Ur Squamous Epith Cells (0-5/HPF) Amorphous Sediment Urine Bacteria (None) Ur Culture Indicated? Vol Urine Centrifuged Point of Care Testing Test Results Negative Urine Dip Bedside Urine Glucose Negative Bedside Urine Bilirubin - Negative Bedside Urine Ketone ++ 40 Urine Specific [place] 1.010 Bedside Urine Occult Blood - Negative Bedside Urine pH 7.5 Bedside Urine Protein +/- 15 Bedside Urine Urobilinogen - Negative Bedside Urine Nitrite - Negative Bedside Urine Leukocytes - Negative Esterase MDM Narrative Medical decision making narrative: 48-year-old female with a past medical history of ANKIT, obesity on tirzepatide, migraine headaches, osteoarthritis, cholecystectomy, appendectomy who presents to the emergency department via EMS for epigastric abdominal pain radiating to the chest that occurred just prior to arrival. History is provided by the patient and supplemented by her sister. Differential diagnosis includes but is not limited to ACS/TN, pneumonia, gastritis, pancreatitis, biliary duct blockage, ELISABETH, electrolyte abnormality, UTI, gastroenteritis, etc. On exam the patient is in no acute distress, nontoxic appearing, vital signs within normal limits except for mildly elevated BP at 162/72. She has no lower extremity tenderness edema or erythema. She has a tenderness to palpation of the epigastric region of her abdomen in the left upper quadrant with no rebound or guarding normal bowel sounds are present. She is concerned that symptoms feel similar to when she biliary duct blockage in the past. Cardiac workup initiated in triage we will treat with morphine, Zofran, GI cocktail and obtain CT abdomen and pelvis with IV contrast. Labs reveal normal WBC count 11.0, hemoglobin 13.5, hematocrit 41.3. Normal electrolytes sodium 137 potassium 3.9 chloride 106. Glucose 127. Normal renal function. LFTs all within normal limits. Troponin negative. Lipase 99. Chest x-ray reveals no significant cardiopulmonary abnormality. EKG shows sinus bradycardia. CT abdomen pelvis with IV contrast reveals mild biliary gas which is not considered to be pathologic. Fat containing periumbilical hernia with mild surrounding inflammatory change. Appearance is mildly progressed compared to 2019. Patient is still in pain, IV Dilaudid ordered and lactic added on. Repeat troponin negative. Lactate negative. Pain improved. Will consult gen surg. Discussed the case with general surgeon on-call Dr. Mijares. He reviewed the patient's imaging. Suspect that the biliary gas is related to biliary enteric anastomosis from patient's prior ERCPs. We discussed the patient's medication including tirzepitide and how this could be contributing to her pain as she did just take a dose today it only started it a few weeks ago. He does not recommend any emergent surgery or intervention however he does recommend she follow up for elective hernia repair once she has lost weight. On repeat abdominal examinations of the patient her pain is significantly improved. She does have some discomfort with deep palpation of umbilical hernia but it is very soft. Epigastric and chest pain is resolved at this time. We did discuss that her symptoms could be related to gastritis as she does take meloxicam daily. I prescribed her Protonix for the next 2 weeks and also encouraged discontinuation of NSAIDs. She was also prescribed Zofran if needed for nausea. We discussed all incidental findings on her CT scan and the importance of following up for those incidental findings. Advised she follow up with a gastrointestinal doctor for endoscopy and further management. She verbalized understanding of all information and is agreeable to discharge home with prescriptions for Protonix and Zofran. She was given a prepack of Zofran for tonight. Abdominal exam benign at this time. Patient is stable for discharge home. <José Morris MD - Last Filed: 04/18/24 20:27> Lab Data Labs: Lab Results 04/18/24 04/18/24 04/18/24 Range/Units 13:57 14:01 15:48 WBC 11.0 (4.5-11.0) X10^3/uL RBC 4.67 (4.0-5.2) X10^6/uL Hgb 13.5 (12.0-16.0) g/dL Hct 41.3 (36-46) % MCV 88.3 (80-100) fL MCH 29.0 (26-34) PG MCHC 32.8 (30-36) % RDW 14.3 (11.6-14.8) % Plt Count 341 (150-400) X10^3/uL Neut % (Auto) 61.5 (50-75) % Lymph % (Auto) 32.8 (25-40) % [place] % (Auto) 4.2 (3-14) % Eos % (Auto) 0.7 L (2-4) % Baso % (Auto) 0.8 (0-2) % Neut # (Auto) 6800 (5722-4659) /uL Lymph # (Auto) 3600 (7305-2766) /uL [place] # (Auto) 500 (0-900) /uL Eos # (Auto) 100 (0-450) /uL Baso # (Auto) 100 (0-100) /uL Sodium 137 (137-145) mmol/L Potassium 3.9 (3.4-5.1) mmol/L Chloride 106 (98-107) mmol/L Carbon Dioxide 23 (22-32) mmol/L BUN 16 (7-17) mg/dL Creatinine 0.78 (0.52-1.04) mg/dL Estimated GFR > 60 (>60) mL/min BUN/Creatinine Ratio 20.5 (6-22) Glucose 127 H (70-100) mg/dL Lactate (0.7-2.1) mmol/L Calcium 9.2 (8.4-10.2) mg/dL Total Bilirubin 0.5 (0.2-1.3) mg/dL AST 30 (14-36) IU/L ALT 24 (<35) IU/L Alkaline Phosphatase 55 (38-126) U/L Troponin I < 0.012 (0.01-0.034) ng/mL Total Protein 7.0 (6.3-8.2) g/dL Albumin 4.2 (3.5-5.0) g/dL Globulin 2.8 (1.7-4.1) g/dL Albumin/Globulin Ratio 1.5 (1.0-2.8) Lipase 99 (23-300) U/L Urine RBC None seen (0-5/HPF) Urine WBC 0-1/hpf (0-5/HPF) Ur Squamous Epith Cells 0-1 /hpf (0-5/HPF) Amorphous Sediment 1+ Urine Bacteria Moderate (10-30) H (None) Ur Culture Indicated? Cult not indicated Vol Urine Centrifuged 10ml (spun) 04/18/24 04/18/24 Range/Units 16:23 17:25 WBC (4.5-11.0) X10^3/uL RBC (4.0-5.2) X10^6/uL Hgb (12.0-16.0) g/dL Hct (36-46) % MCV (80-100) fL MCH (26-34) PG MCHC (30-36) % RDW (11.6-14.8) % Plt Count (150-400) X10^3/uL Neut % (Auto) (50-75) % Lymph % (Auto) (25-40) % [place] % (Auto) (3-14) % Eos % (Auto) (2-4) % Baso % (Auto) (0-2) % Neut # (Auto) (5598-1402) /uL Lymph # (Auto) (0831-2151) /uL [place] # (Auto) (0-900) /uL Eos # (Auto) (0-450) /uL Baso # (Auto) (0-100) /uL Sodium (137-145) mmol/L Potassium (3.4-5.1) mmol/L Chloride (98-107) mmol/L Carbon Dioxide (22-32) mmol/L BUN (7-17) mg/dL Creatinine (0.52-1.04) mg/dL Estimated GFR (>60) mL/min BUN/Creatinine Ratio (6-22) Glucose (70-100) mg/dL Lactate 1.6 (0.7-2.1) mmol/L Calcium (8.4-10.2) mg/dL Total Bilirubin (0.2-1.3) mg/dL AST (14-36) IU/L ALT (<35) IU/L Alkaline Phosphatase (38-126) U/L Troponin I < 0.012 (0.01-0.034) ng/mL Total Protein (6.3-8.2) g/dL Albumin (3.5-5.0) g/dL Globulin (1.7-4.1) g/dL Albumin/Globulin Ratio (1.0-2.8) Lipase (23-300) U/L Urine RBC (0-5/HPF) Urine WBC (0-5/HPF) Ur Squamous Epith Cells (0-5/HPF) Amorphous Sediment Urine Bacteria (None) Ur Culture Indicated? Vol Urine Centrifuged Point of Care Testing Test Results Negative Urine Dip Bedside Urine Glucose Negative Bedside Urine Bilirubin - Negative Bedside Urine Ketone ++ 40 Urine Specific [place] 1.010 Bedside Urine Occult Blood - Negative Bedside Urine pH 7.5 Bedside Urine Protein +/- 15 Bedside Urine Urobilinogen - Negative Bedside Urine Nitrite - Negative Bedside Urine Leukocytes - Negative Esterase Discharge Plan Departure Patient Disposition: Home Clinical Impression: Epigastric abdominal pain, Atypical chest pain Hernia, umbilical Qualifiers: Obstruction and gangrene presence: without obstruction or gangrene Qualified Code(s): K42.9 - Umbilical hernia without obstruction or gangrene Instructions: DI for Epigastric Pain Activity Restrictions/Additional Instructions: Today you were evaluated for chest pain and upper abdominal pain. CT scan of your abdomen revealed a fat containing umbilical hernia with some inflammation. I discussed this with our surgeon who recommends following up outpatient with a general surgeon for elective hernia repair in the future. Your CT scan also revealed a prominent uterine cervix with irregularity which is similar to 2019. Please follow up with an OBGYN for further evaluation of the cervical irregularity. Your upper abdominal pain could be related to gastritis or irritation of the stomach lining. I would like you to follow up with a gastrointestinal doctor for further evaluation with possible endoscopy and colonoscopy. Taking NSAIDs such as meloxicam, ibuprofen, aspirin can worsen irritation of the stomach lining. Chest x-ray was normal. Cardiac enzymes were negative. I have sent nausea medication to your pharmacy in addition to Protonix for you to take every morning x 2 weeks. You may call to schedule an appointment with [facility] [facility] at [phone]. Please follow up with your primary care doctor within the next 2-3 days for ER follow-up. (If you do not have a PCP you can call [phone]. ?to schedule an appointment with an [facility] Primary Care Provider) IF YOU DEVELOP ANY NEW OR WORSENING SYMPTOMS, RETURN TO THE ER! Please read the attached instructions, they highlight more specific treatments and interventions for you at home. Thank you for letting me participate in your care, Shanita Carrion PA-C Prescriptions: New ondansetron 4 mg tablet,disintegrating 4 mg PO Q8H PRN (Reason: nausea and vomiting) Qty: 14 0RF pantoprazole [Protonix] 20 mg tablet,delayed release (DR/EC) 20 mg PO DAILY 14 Days Qty: 14 0RF No Action Tirzepatide 2.5 mg SUBCUT QWEEK Qty: 9 2RF Rx Instructions: 2.5 mg once weekly for 4 weeks, then increase to 5 mg once weekly (DME) Disabled Parking Permit See Rx Instructions .Route .MEDSUPPLY Qty: 1 0RF Rx Instructions: See accompanying application [employer] 750 mg-100 mg- 1.65 mg-108 mg tablet PO berberine chloride 500 mg capsule PO calcium carbonate 600 mg calcium (1,500 mg) tablet 600 mg PO DAILY cholecalciferol (vitamin D3) 25 mcg (1,000 unit) capsule 25 mcg PO DAILY potassium gluconate 550 mg (90 mg) tablet 550 mg PO DAILY turmeric 400 mg capsule PO omega-3 fatty acids 500 mg capsule 500 mg PO DAILY saw palmetto 450 mg capsule 450 mg PO BID Rx Instructions: give with food (meal/snack) mecobalamin (vitamin B12) 1,000 mcg tablet,chewable 1,000 mcg PO DAILY zinc gluconate 30 mg tablet 30 mg PO DAILY magnesium citrate 125 mg capsule 250 mg PO DAILY melatonin 3 mg capsule 3 mg PO BEDTIME PRN acyclovir 400 mg tablet 400 mg PO BID Qty: 180 3RF meloxicam 15 mg tablet 15 mg PO DAILY Qty: 90 3RF albuterol sulfate 90 mcg/actuation Hfa Aerosol Inhaler 1 puff INHALATION Q4-6H PRN (Reason: Shortness Of Breath) Referrals: Juan Love ARNP [Primary Care Provider] - Stand Alone Forms: Patient Portal/API/Survey ED Sign-out <José Morris MD - Last Filed: 04/18/24 20:27> Cosign ED Attending Cosmilesature Attestation: I was immediately available in the department for consultation. This documentation has been reviewed and I agree with assessment and plan. Supervised by José Morris MD
--- NOTE | 2024-04-18 15:49 | DI.CT.S_ITS ---
PROCEDURE: CT ABDOMEN PELVIS W CON INDICATIONS: Epigastric abd pain/N/hx cholecystectomy TECHNIQUE: After the administration of intravenous contrast, axial sections acquired from the lung bases to the pubic symphysis. Coronal and sagittal reformats were performed. For radiation dose reduction, the following was used: automated exposure control, adjustment of mA and/or kV according to patient size. COMPARISON: [facility], CT, CT ABDOMEN PELVIS W CON, 05/30/2018, 21:48. [facility], CR, XR CHEST 1V, 04/18/2024, 14:19. FINDINGS: Image quality: Diagnostic. Lower Chest: No significant findings. ABDOMEN: Liver: No solid mass. Biliary gas is seen. Gallbladder: Cholecystectomy. Biliary ducts: No biliary dilation. Pancreas: No ductal dilation. Spleen: Size is within normal limits. Incidental note is made of an accessory splenule along the anterior aspect of the primary spleen. Adrenal Glands: No adrenal nodules. Kidneys and Ureters: No hydronephrosis. No solid mass. No complex renal cystic lesion which requires follow up. Stomach and Bowel: Normal colonic caliber, without significant wall thickening. There is apparent prior appendectomy. No dilated loops of small bowel are seen. Peritoneum: No abnormal intraperitoneal fluid. No free air. Ventral Wall: There is a moderate containing umbilical hernia, with surrounding inflammatory change. Abdominal Nodes: No retroperitoneal or mesenteric adenopathy by size criteria. Vessels: Aorta and inferior vena cava are normal in size. PELVIS: Pelvic Organs: No adnexal masses are seen on either side. The cervix is prominent, with irregularity. Bladder: No bladder wall thickening, accounting for underdistention. Pelvic Nodes: No enlarged lymph nodes. Miscellaneous: No inguinal hernias are seen. Bones: No aggressive osseous abnormality. Multiple levels of degenerative change are seen, which are worst at the L5-S1 level. IMPRESSION: Status post cholecystectomy. Mild biliary gas is seen, which is not considered to be pathologic. Fat containing periumbilical, with mild surrounding inflammatory change. Appearance is mildly progressed compared to 2019. Prominent uterine cervix with irregularity, which is similar to 2019. Please correlate with patient history and physical examination findings. Additional findings: Accessory splenule Apparent prior appendectomy. Focal L5-S1 degenerative change Dictated by: Zachariah Garcia M.D. on 04/18/2024 at 15:15 Approved by: Luisa DumontD. on 04/18/2024 at 15:19
[2024-04-18] MEDS: MAG HYDROX/ALUMINUM/SIMETH SUS 20 ML, LIDOCAINE VISCOUS 2% 15 ML PO (15:56)
[2024-04-18] MEDS: ONDANSETRON 4 MG/2 ML INJ IV ×2 (15:56→17:16)
[2024-04-18 16:01] LABS: Bacteria Urine Moderate (10-30); RBC Urine None Seen (0-5/HPF); Squamous Epithelial Cell Urine 0-1 /HPF (0-5/HPF); Urine Volume 10mL (spun); WBC Urine 0-1/HPF (0-5/HPF)
[2024-04-18 16:02] LABS: Amorphous Sediment Urine 1+; Culture Indicated Urine Cult Not Indicated
--- NOTE | 2024-04-18 16:26 | EKG_ITS ---
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
[2024-04-18] MEDS: MORPHINE 4 MG/ML INJ IV (16:52)
[2024-04-18 16:54] LABS: Troponin I < 0.012 ng/mL (0.01-0.034)
[2024-04-18] MEDS: HYDROMORPHONE 0.5 MG INJ IV (17:14)
[2024-04-18 17:45] LABS: Lactate (Lactic Acid) 1.6 mmol/L (0.7-2.1)
[2024-04-18] MEDS: ONDANSETRON 4 MG ODT PREPACK 1 BOTTLE MISC (19:27)
== END 2024-04-18 19:54 | disposition home or self-care (01) ==
PROVIDERS: Emergency Medicine; Emergency Provider Physician Assistant; Family Provider Family Medicine; PCP Registered Nurse Diabetes Educator
DX: K42.9 Umbilical hernia without obstruction or gangrene (principal); R10.13 Epigastric pain; R07.89 Other chest pain; R00.1 Bradycardia, unspecified
CPT/HCPCS: 71045; 74177; 80053; 81003; 81015; 81025; 83605; 83690; 84484; 85025; 93005; 96374; 96375; 96376; 99284; 99285; J1171; J2270; J2405; Q9967

== ENCOUNTER → 2024-06-29 06:46 | Outpatient (CLI) | payer OTHER, SELFPAY ==
--- NOTE | 2024-06-29 06:47 | DI.US.S_ITS ---
PROCEDURE: US PELVIC COMPLETE INDICATIONS: PAIN; CHECK IUD PLACEMENT TECHNIQUE: Real-time scanning was performed of the pelvic organs, with image documentation. Additional endovaginal scanning was necessary due to incomplete visualization of the adnexal and endometrial structures by transabdominal scanning. COMPARISON: None. FINDINGS: Uterus: Uterus is anteverted and normal in size at 8.3 x 4.1 x 4.0 cm. The myometrium is homogeneous. The endometrium measures 4.8 mm combined thickness. Intrauterine device position in the cervix Ovaries: The right ovary measures 4.2 x 3.9 x 2.6 cm, with a calculated ovarian volume of 22.7 cc. 2.4 x 1.9 x 2.1 centimeters simple right ovarian cyst. The left ovary is not visualized due to bowel gas. Less than 12 follicles can be seen in each ovary. No adnexal masses are seen. Other: No pathologic free abdominal or pelvic fluid. IMPRESSION: Intrauterine device positioned in the cervix. Dictated by: Yodit Paul MD, PhD on 06/29/2024 at 9:34 Approved by: Yodit Paul MD, PhD on 06/29/2024 at 9:37
== END ==
PROVIDERS: Family Provider Family Medicine; PCP Registered Nurse Diabetes Educator; Referring Provider Student in an Organized Health Care Education/Training Program; Visit Provider Student in an Organized Health Care Education/Training Program
DX: R10.2 Pelvic and perineal pain (principal); Z30.431 Encounter for routine checking of intrauterine contraceptive device; N83.291 Other ovarian cyst, right side
CPT/HCPCS: 76830; 76856

== ENCOUNTER 2024-07-15 10:06 | Day surgery (SDC) | payer OTHER, SELFPAY ==
--- NOTE | 2024-07-15 | PATH_ITS ---
[facility] Accession Number: [id number] No. of containers..01 Tissue . 01 Material submitted: . stomach - ANTRUM . 01 Diagnosis: GASTRIC ANTRUM, BIOPSY: Gastric antral mucosa with mild chronic inflammation. Negative for Helicobacter organisms by immunohistochemistry. Negative for intestinal metaplasia. Negative for dysplasia or malignancy. MRV 07/20/2024 1251 Local . 01 Electronically signed: . Gonzales Park MD, PhD, Pathologist NPI- [id number] . 01 Gross description: . Received in formalin with two patient identifiers and antrum biopsies consists of three stoll tissues averaging 0.3 cm in greatest dimension which are submitted in toto in cassette A1. (DL:cmc10 [id number]) /MRV 07/16/2024 1728 Local . 01 Microscopic: . An immunohistochemical stain was performed to evaluate for Helicobacter organisms and is negative. The control stain showed appropriate reactivity. . * This test was developed and the performance characteristics were validated by [facility]. It has not been cleared or approved by the U.S. Food and Drug Administration. . 01 Pathologist provided ICD-10: K29.70 . 01 CPT . 876374, [id number] Performed at: [address], [place], [place] [id number] MD Arnie Marcos MD Phone: [phone]
[2024-07-15 10:31] VITALS: BP 117/76; PULSE 78; RESP 18; TEMP 36.1; O2SAT 99
[2024-07-15] MEDS: LACTATED RINGERS 1,000 ML 150 ML IV (10:39)
--- NOTE | 2024-07-15 11:03 | P.HP_ITS ---
History of Present Illness History of Present Illness Date Patient Seen: 07/15/24 Time Patient Seen: 11:04 Chief complaint: SDC Narrative: Erin is a 48-year-old woman with a history of ulcers and a history of colon polyps. See the office note from April for details. [facility] Medical History (Updated 07/15/24 @ 11:04 by Gil Salguero MD) Dyslipidemia Increased risk of breast cancer PCOS (polycystic ovarian syndrome) Bilateral primary osteoarthritis of knee Allergy to adhesive Perimenopause Insomnia ANKIT (obstructive sleep apnea) Class 3 severe obesity due to excess calories in adult Depression Headache Chicken pox Painful menstrual periods Infertility Oral herpes Heavy menstrual period Abnormal Pap smear of cervix JOYCE (stress urinary incontinence, female) (~2021) Cold sore Knee pain Sleep apnea Seizure Migraines Ovarian cyst Irregular menstrual cycle Human papilloma virus Recurrent abdominal pain Surgical History Anesthesia Perirectal abscess (~2015) History of appendectomy (~2014) History of cholecystectomy (~2000) Family History Mother Cancer Diabetes mellitus History of heart disease Hypertension Hyperlipidemia Mental health problem COPD (chronic obstructive pulmonary disease) Obesity Father Hypertension Social History Smoking Status: Current some day smoker Meds Home Medications and Allergies Home Medications Medication Instructions Recorded Confirmed Type albuterol sulfate 90 mcg/actuation 1 puff inhalation Q4-6H PRN 05/31/18 07/15/24 History aerosol inhaler Shortness Of Breath acyclovir 400 mg tablet 400 mg PO BID #180 tabs 11/27/23 07/15/24 Rx cholecalciferol (vitamin D3) 25 25 mcg PO DAILY 01/20/24 05/31/24 History mcg (1,000 unit) capsule magnesium citrate 125 mg capsule 100 mg PO DAILY 01/20/24 07/15/24 History mecobalamin (vitamin B12) 1,000 1,000 mcg PO DAILY 01/20/24 05/31/24 History mcg chewable tablet melatonin 3 mg capsule 3 mg PO BEDTIME PRN 01/20/24 05/31/24 History omega-3 fatty acids 500 mg capsule 500 mg PO DAILY 01/20/24 05/31/24 History turmeric 400 mg capsule mg PO 01/20/24 05/31/24 History zinc gluconate 30 mg tablet 30 mg PO DAILY 01/20/24 05/31/24 History Disabled Parking Permit #1 ea 02/09/24 05/26/24 Rx triamcinolone acetonide 0.1 % See Rx Instructions topical BID 04/27/24 05/31/24 Rx topical cream #30 grams sodium,potassium,mag sulfates 17.5 See Rx Instructions PO .COMPLEX 05/27/24 05/31/24 Rx gram-3.13 gram-1.6 gram oral soln #354 mL (Suprep Bowel Prep Kit) metformin 500 mg tablet 500 mg PO DAILY #60 tabs 05/31/24 07/15/24 Rx norethindrone acetate 1.5 1 tab PO DAILY #84 tabs 06/30/24 07/15/24 Rx mg-ethinyl estradiol 30 mcg tablet ([place]) Allergies Allergy/AdvReac Type Severity Reaction Status Date / Time adhesive Allergy Intermediate Rash Verified 07/15/24 10:21 Pertussis Vaccines Allergy Unknown Verified 07/15/24 10:21 Exam Vital Signs (past 8 hours): - 07/15/24 10:31 Temperature 96.9 F L Pulse Rate 78 Respiratory Rate 18 Blood Pressure 117/76 Pulse Oximetry 99 Oxygen Delivery Method Room Air Oxygen Flow Rate 0 Oxygen Delivery Method Room Air Oxygen Flow Rate 0 Const General: No acute distress Assessment & Plan Assessment and plan (1) History of stomach ulcers: Status: Acute Plan EGD and colonoscopy Time-Based Coding :: [TOTAL MINUTES] spent with patient and on the chart (including review of chart, obtaining history, exam, reviewing outside data, placing orders, documenting exam and treatment plan, and counseling patient) on [DATE]. PROFEE Building Construction Professor Document charge(s): No
[2024-07-15 11:46] VITALS: BP 99/53; PULSE 72; RESP 14; TEMP 36.4; O2SAT 99
--- NOTE | 2024-07-15 11:49 | P.OP.EGD&C_ITS ---
Operative Date/Time/Diagnoses Date of procedure: 07/15/24 Time of procedure: 11:49 Pre-op diagnosis: History of ulcers and colon polyps Post-op diagnosis: same Procedure & Clinicians Study performed: EGD and colonoscopy Same procedure as scheduled: Yes Surgeon: Gil Salguero Procedure Notes Procedure in detail: Surgeon: Gil Salguero MD Anesthesia: Maria Elena Gipson [employer]IAISON Procedure in detail: A timeout was performed. A bite blocked was placed and monitors were attached to the patient. The patient was positioned in the left lateral decubitus position. Sedation was administered. Once the patient was sedated the endoscope was inserted through the bite block and passed through the esophagus and stomach and into the duodenum. No abnormalities were seen in the duodenum.. We then withdrew the scope into the stomach. Random biopsies were taken from the antrum with cold forceps. The endoscope was retroflexed and no abnormalities were seen. The endoscope was straightned and withdrawn into the esophagus. No abnormalities were seen in the esophagus. EGD findings: Grossly normal EGD Next we repositioned the patient for a colonoscopy. A digital rectal exam was performed and was normal. The colonoscope was inserted and advanced to the cecum. The appendiceal orifice was identified and photographed. Multiple cecal diverticula were observed. The scope was slowly withdrawn over greater than 6 minutes. No polyps or other abnormalities were seen. The scope was retroflexed in the rectum and no abnormalities were seen. Colonoscopy findings: Normal colon Total procedural EBL: 5 mL Scope withdrawal time: 7 minutes Sedation minutes: 21 minutes Post-procedure Recommendations: Colonscopy in 10 years Disposition: PACU
[2024-07-15 11:51] VITALS: BP 108/60; PULSE 69; RESP 17; O2SAT 98
[2024-07-15 11:57] VITALS: BP 134/82; PULSE 66; RESP 12; O2SAT 94
== END 2024-07-15 12:17 | disposition home or self-care (01) ==
PROVIDERS: Family Provider Family Medicine; PCP Registered Nurse Diabetes Educator; Referring Provider Registered Nurse Diabetes Educator; Visit Provider Surgery
PROC: 0DJ08ZZ Inspection of Upper Intestinal Tract, Via Natural or Artificial Opening Endoscopic (ICD-10-PCS; CPT 43239; principal; 2024-07-15 11:30)
PROC: 0DJD8ZZ Inspection of Lower Intestinal Tract, Via Natural or Artificial Opening Endoscopic (ICD-10-PCS; CPT 45378; 2024-07-15 11:30)
DX: Z12.11 Encounter for screening for malignant neoplasm of colon (principal); Z86.0100 Personal history of colon polyps, unspecified; Z87.11 Personal history of peptic ulcer disease; K29.50 Unspecified chronic gastritis without bleeding
CPT/HCPCS: 43239; 45378; J2405; J2704

== ENCOUNTER → 2024-12-01 09:51 | Outpatient (CLI) | payer OTHER, SELFPAY ==
[2024-12-01 10:49] LABS: Hemoglobin A1C% w Est Avg Glu 5.6 % (4.0-6.0)
[2024-12-01 11:25] LABS: Cortisol AM (Before 10AM) 8.03 ug/dL (4.46-22.7)
== END ==
PROVIDERS: Family Provider Family Medicine; PCP Registered Nurse Diabetes Educator; Referring Provider Registered Nurse Diabetes Educator; Visit Provider Registered Nurse Diabetes Educator
DX: E66.9 Obesity, unspecified (principal)
CPT/HCPCS: 36415; 82533; 83036

== ENCOUNTER 2025-01-13 13:06 | Day surgery (SDC) | payer OTHER, SELFPAY ==
[2025-01-12 12:42] VITALS: BMI 51.6
[2025-01-13] VITALS (10 sets, daily range): BP systolic 105–134; BP diastolic 55–86; PULSE 67–95; RESP 13–24; TEMP 36.2–36.3; O2SAT 95–100; BMI 51.6
--- NOTE | 2025-01-13 | PATH_ITS ---
[facility] Accession Number: [id number] No. of containers..02 Tissue . 01 Material submitted: . PART A: endometrium - ENDOMETRIAL CURETTINGS PART B: endocervix - ENDOCERVICAL CURETTINGS . 01 Diagnosis: A. ENDOMETRIAL CURETTINGS: Inactive endometrium with exogenous hormone effect; negative for endometrioid intraepithelial neoplasia or malignancy. Some endometrial fragments demonstrate prominent vessels, suggestive of polyp, if clinical and imaging studies are concordant. Ectocervix with no abnormality. . B. ENDOCERVICAL CURETTING: Endocervical tissue fragments and strips of glandular epithelium; negative for significant atypia. Squamous mucosa with no abnormality. MRV 01/25/2025 1530 Local . 01 Electronically signed: . Bre Perez MD, Pathologist NPI- [id number] . 01 Gross description: . Received two formalin-filled containers, both labeled with the patient's name. . A. In a container labeled endometrial curettings are multiple fragments of tissue, mucoid material, and blood which measure 2.0 x 2.0 x 0.4 cm in aggregate. Wrapped and entirely submitted in cassette A. B. In a container labeled endocervical curettings are multiple fragments of tissue, mucoid material and blood which measure 3.0 x 3.0 x 0.3 cm in aggregate. Filtered, wrapped, and entirely submitted in cassette B. ([facility] [place]cmc10 [id number][place] /MRV 01/19/2025 1408 Local . 01 Pathologist provided ICD-10: N93.9 . 01 CPT . 697756, 355794 Specimen Comment: A courtesy copy of this report has been sent to [phone] Performed at: [address] [place] [address] [address], [place], [place] [id number] MD Arnie Marcos MD Phone: [phone]
[2025-01-13] MEDS: LACTATED RINGERS 1,000 ML 42 ML IV ×2 (13:53→15:49)
--- NOTE | 2025-01-13 14:29 | PM.PREOP ---
Pre-operative Note COVID-19 COVID-19 status: Not tested Interval Note History & Physical reviewed/Exam performed by Physician: Yes Changes to H&P: No
[2025-01-13] MEDS: ACETAMINOPHEN IV 1,000 MG/100 ML VIAL 400 MG IV (14:49)
--- NOTE | 2025-01-13 14:59 | SUR.OPER ---
Lithotomy on padded OR bed, head on pillow, arms secured on padded arm boards at <90 degrees abduction. Legs secured in padded yellow fins stirrups.
--- NOTE | 2025-01-13 15:27 | P.OP_ITS ---
Operative Date/Time/Diagnoses Date of procedure: 01/13/25 Time of procedure: 14:30 Pre-op diagnosis: Abnormal uterine bleeding Post-op diagnosis: other (Same; bicornuate uterus, adenomyosis) Procedure & Clinicians Procedure: Procedures Operation Date: 01/13/25 14:45 Actual Procedure Side Surgeon p Hysteroscopy with possible biopsies, dilation and curettage of the uterus, possible Mirena IUD insertion Not Applicable Edwin Cervantes MD Indications: Erin is a 49-year-old G0 who has been bleeding/spotting for over a year. Patient experienced menarche at age 11 and has had irregular menses throughout her reproductive years. She was diagnosed with polycystic ovarian syndrome and placed on oral contraceptives at about the age of 14. She remained on control pills through much of her reproductive years but at times that she has been off control pills, she has never been able to become . Patient subsequently had a ParaGard placed which was removed in about 2015. In the timeframe, the patient began having periods about every 6 months and shortly thereafter began having vasomotor symptoms and other perimenopausal symptoms. She was initiated on transdermal estradiol and oral progesterone in November of 2023 and began bleeding almost immediately. A Mirena IUD was messer bsequently inserted but after only a few months, on ultrasound performed in June 2024 showed: FINDINGS: Uterus: Uterus is anteverted and normal in size at 8.3 x 4.1 x 4.0 cm. The my ometrium is homogeneous. The endometrium measures 4.8 mm combined thickness. Intrauterine device position in the cervix Ovaries: The right ovary measures 4.2 x 3.9 x 2.6 cm, with a calculated ovarian volume of 22.7 cc. 2.4 x 1.9 x 2.1 centimeters simple right ovarian cyst. The left ovary is not visualized due to bowel gas. Less than 12 follicles can be seen in each ovary. No adnexal masses are seen. Other: No pathologic free abdominal or pelvic fluid. IMPRESSION: Intrauterine device positioned in the cervix. The IUD was removed shortly thereafter but her bleeding never stopped. She was placed on control pills once again but the bleeding continued and has continued since being transitioned to seasonique about 3 months ago. She presents today for further evaluation and discussion of options for possible next steps. She is actively bleeding today which precludes endometrial sampling and to this point, no endometrial sampling has been performed due to the patient's continuous bleeding. The patient's lifelong history of abnormal menses with long periods of amenorrhea and a diagnosis of PCOS is concerning because of the potential increased risk of endometrial hyperplasia/neoplasia. Also concerning is the patient's continuous bleeding over the last 12+ months without any endometrial sampling to this point. We had a long discussion about possible next steps but I believe it is imperative that we rule out the possibility of endometrial neoplasia. With her continuous bleeding however in office sampling would seem inadequate to fully assess the endometrial cavity and therefore recommended hysteroscopy with possible biopsies and dilation and curettage of the uterus. Despite the fact that she had displacement of a Mirena IUD previously, there would be no contraindication to placing another Mirena IUD at the time of surgery unless at the time of hysteroscopy a uterine abnormality such as a septate uterus or bicornuate uterus was discovered. After our discussion, the patient expresses a strong desire to move forward with hysteroscopy and possible biopsies with dilation and curettage and assuming her cavity is normal, placeme nt of a Mirena IUD at the time of surgery. She presents today for her scheduled surgery Surgeon: Edwin Cervantes Anesthesia Type: General Operative Notes Findings: The shape of the uterine canal is consistent with bicornuate uterus. There were numerous crypts evident in the endometrium highly suggestive of adenomyosis. There were no focal endometrial lesions noted. Closure Type: not applicable Specimen(s): endometrial curettings and other (Endocervical curettings) Applied: none Estimated blood loss (mL): 10 Blood products transfused: none Procedure in detail: With the patient under general LMA in the modified dorsal lithotomy position, the perineum, vagina, and lower abdomen were prepped and draped in the usual fashion for hysteroscopy with endometrial ablation. A pre-surgical safety time- out was then taken in accordance with [facility] Main OR protocols. A bivalve speculum was inserted in the vagina and the cervix visualized. The anterior lip of the cervix was grasped with a single-tooth tenaculum and the endocervical canal was then dilated to 6 mm diameter. Hysteroscope was placed through the endocervical canal into the endometrial cavity and the cavity was visualized. There were no localized abnormalities within the endometrial cavity and the endometrium itself was unremarkable. Both tubal ostia were visualized. The hysteroscope was then withdrawn and a fractional dilation and curettage was accomplished with separate pathologic specimen submitted for the endometrial and endocervical curettings. The tenaculum was then removed from the anterior lip of the cervix and no bleeding was encountered. The speculum was then removed from the vagina and the patient awakened from anesthesia. She was then transferred to the PACU for a period of observation and recovery having tolerated the procedure well. Complications: none Post-operative Condition: stable Disposition: PACU Plan for aftercare: Routine post-op care.
[2025-01-13] MEDS: ONDANSETRON 4 MG/2 ML INJ IV (15:41)
[2025-01-13] MEDS: hydrOXYzine 50 MG/ML INJ IM (16:10)
== END 2025-01-13 16:30 | disposition home or self-care (01) ==
PROVIDERS: Family Provider Family Medicine; PCP Registered Nurse Diabetes Educator; Referring Provider Obstetrics & Gynecology; Visit Provider Obstetrics & Gynecology
PROC: 0UDB8ZZ Extraction of Endometrium, Via Natural or Artificial Opening Endoscopic (ICD-10-PCS; CPT 58558; principal; 2025-01-13 14:45)
DX: N93.9 Abnormal uterine and vaginal bleeding, unspecified (principal); Q51.3 Bicornate uterus; N80.03 Adenomyosis of the uterus; Z87.891 Personal history of nicotine dependence
CPT/HCPCS: 58558; J0131; J0330; J1100; J1885; J2405; J2704; J3010; J3410

== ENCOUNTER → 2025-02-03 07:45 | Outpatient (CLI) | payer OTHER, SELFPAY | LOC: PHYS 07:46 | PROVIDERS: Family Provider Family Medicine; PCP Registered Nurse Diabetes Educator; Referring Provider Registered Nurse Diabetes Educator; Visit Provider Registered Nurse Diabetes Educator | DX: G56.03 Carpal tunnel syndrome, bilateral upper limbs (principal) | CPT/HCPCS: 95885; 95886; 95913 ==

== ENCOUNTER 2025-03-11 08:12 | Day surgery (SDC) | payer OTHER, SELFPAY ==
[2025-02-17 10:45] VITALS: BMI 53.4
[2025-03-11] VITALS (16 sets, daily range): BP systolic 112–156; BP diastolic 57–87; PULSE 79–93; RESP 11–24; TEMP 36.2–36.9; O2SAT 92–100; BMI 53.4
--- NOTE | 2025-03-11 | PATH_ITS ---
[facility] Accession Number: [id number] No. of containers..01 Tissue . 01 Material submitted: . uterus - UTERUS, CERVIX, BILATERAL FALLOPIAN TUBES . 01 Diagnosis: UTERUS, CERVIX, AND BILATERAL FALLOPIAN TUBES, HYSTERECTOMY AND BILATERAL SALPINGECTOMY: Cervix: Reactive changes and focal inflammation. Corpus: Inactive endometrium with inflammation and stromal reactive changes, favor healing from recent biopsy. -Adenomyosis not identified. Fallopian tubes: Histologically unremarkable fimbriated fallopian tubes. Negative for malignancy. [facility] [place] 03/22/2025 1409 Local . 01 Electronically signed: . Eda La DO, Pathologist NPI- [id number] . 01 Gross description: . Received in formalin with two patient identifiers, and uterus, cervix, bilateral tubes is a uterus with separate cervix and attached bilateral fallopian tubes. The uterus and cervix are 90 grams. The uterus is 6.5 cm superior to inferior by 5.2 cm cornu to cornu by 4 cm anterior to posterior. The separate cervix is 3.5 cm long by 2.5 cm diameter with a patent os. The ectocervical mucosa is stoll and smooth. The endometrium is red-stoll, smooth and hemorrhagic, 0.2 cm thick. The myometrium is stoll, moderately trabeculated and up to 1.8 cm thick. No discrete masses or lesions are grossly identified. The right fallopian tube is 4.5 cm long by 0.5 cm diameter. The left fallopian tube is 4.2 cm long by 0.5 cm diameter. The cut surfaces of the fallopian tubes are stoll with pinpoint lumens. Window Covering Sales Consultant sections are submitted as follows: A1: Anterior and posterior cervix. A2: Anterior endomyometrium. A3: Posterior endomyometrium. A4: Right fallopian tube with entire bisected fimbriae. A5: Left fallopian tube with entire bisected fimbriae. (JF:cmc10 2496) /MRV 03/15/2025 1646 Local . 01 Pathologist provided ICD-10: N92.1 . 01 CPT . 964949 Specimen Comment: A courtesy copy of this report has been sent to [phone] Performed at: [address] [address], [place], [place] [id number] MD Arnie Marcos MD Phone: [phone]
[2025-03-11] MEDS: LACTATED RINGERS 1,000 ML 42 ML IV ×2 (08:52→11:58)
[2025-03-11] MEDS: ACETAMINOPHEN 325 MG TABLET 975 MG PO (08:53)
--- NOTE | 2025-03-11 09:13 | PM.PREOP ---
Pre-operative Note COVID-19 COVID-19 status: Not tested Interval Note History & Physical reviewed/Exam performed by Physician: Yes Changes to H&P: No
--- NOTE | 2025-03-11 10:24 | SUR.OPER ---
Lithotomy on padded OR bed. Vina Pad Positioner under torso. Head on pillow, arms padded and tucked at sides, purple chest strap in place, IV site and ports padded and protected. Legs secured in padded yellow fins stirrups. Surgeon approved final position prior to start of procedure.
[2025-03-11] MEDS: BUPivacaine 0.25% W/ EPI (PF) 30 ML VIAL INJ (10:30)
--- NOTE | 2025-03-11 12:56 | P.OP_ITS ---
Operative Date/Time/Diagnoses Date of procedure: 03/11/25 Time of procedure: 10:20 Pre-op diagnosis: Menometrorrhagia Bicornuate Uterus Adenomyosis Morbid Obesity Post-op diagnosis: same Procedure & Clinicians Procedure: Procedures Operation Date: 03/11/25 09:45 Actual Procedure Side Surgeon p Laparoscopic-assisted vaginal hysterectomy with bilateral salpingectomy Edwin Cervantes MD s Mid-urethral sling with cystoscopy Edwin Cervantes MD Indications: Erin is a 49-year-old G0 who has been bleeding/spotting for over a year. Patient experienced menarche at age 11 and has had irregular menses throughout her reproductive years. She was diagnosed with polycystic ovarian syndrome and placed on oral contraceptives at about the age of 14. She remained on control pills through much of her reproductive years but at times that she has been off control pills, she has never been able to become . Patient subsequently had a ParaGard placed which was removed in about 2015. In the timeframe, the patient began having periods about every 6 months and shortly thereafter began having vasomotor symptoms and other perimenopausal symptoms. She was initiated on transdermal estradiol and oral progesterone in November of 2023 and began bleeding almost immediately. A Mirena IUD was subsequently inserted but after only a few months, on ultrasound performed in June 2024 showed: FINDINGS: Uterus: Uterus is anteverted and normal in size at 8.3 x 4.1 x 4.0 cm. The myometrium is homogeneous. The endometrium measures 4.8 mm combined thickness. Intrauterine device position in the cervix Ovaries: The right ovary measures 4.2 x 3.9 x 2.6 cm, with a calculated ovarian volume of 22.7 cc. 2.4 x 1.9 x 2.1 centimeters simple right ovarian cyst. The left ovary is not visualized due to bowel gas. Less than 12 follicles can be seen in each ovary. No adnexal masses are seen. Other: No pathologic free abdominal or pelvic fluid. IMPRESSION: Intrauterine device positioned in the cervix. The IUD was removed shortly thereafter but her bleeding never stopped. She was placed on control pills once again but the bleeding continued and has continued since being transitioned to seasonique about 3 months ago. She presents today for further evaluation and discussion of options for possible next steps. She is actively bleeding today which precludes endometrial sampling and to this point, no endometrial sampling has been performed due to the patient's continuous bleeding. The patient's lifelong history of abnormal menses with long periods of amenorrhea and a diagnosis of PCOS is concerning because of the potential increased risk of endometrial hyperplasia/neoplasia. Also concerning is the patient's continuous bleeding over the last 12+ months without any endometrial sampling to this point. We had a long discussion about possible next steps but I believe it is imperative that we rule out the possibility of endometrial neoplasia. With her continuous bleeding however in office sampling would seem inadequate to fully assess the endometrial cavity and therefore recommended hysteroscopy with possible biopsies and dilation and curettage of the uterus. Despite the fact that she had displacement of a Mirena IUD previously, there would be no contraindication to placing another Mirena IUD at the time of surgery unless at the time of hysteroscopy a uterine abnormality such as a septate uterus or bicornuate uterus was discovered. After our discussion, the patient expressed a strong desire to move forward with hysteroscopy and possible biopsies with dilation and curettage and assuming her cavity is normal, place ment of a Mirena IUD at the time of surgery. That surgery however demonstrated an endometrial cavity consistent with bicornuate uterus and numerous crypts highly suggestive of significant adenomyosis. The patient's bleeding has continued after her December 2024 surgery and she now has decided to move forward with robotically assisted total laparoscopic hysterectomy with bilateral salpingectomy and placement of mid urethral sling with cystoscopy for JOYCE symptoms. Following consultation with anesthesia however the surgical plan was change to a laparoscopic-assisted vaginal hysterectomy with bilateral salpingectomy and mid urethral sling placement with cystoscopy. The rationale was concern over the effects of prolonged Trendelenburg position in this patient with the LAVH approach affording less time in Trendelenburg and potentially less operative time. Operative Notes Findings: Uterus is normal in size and shape. Both fallopian tubes and ovaries appeared to be normal. There is no abnormality in either the posterior or anterior cul-de-sac. The bladder is unremarkable and shows vigorous streams of clear ur ine coming from each ureteral orifice. No evidence of bladder injury was evident. Closure Type: primary Specimen(s): left tube, right tube and uterus Applied: catheter Estimated blood loss (mL): 50 Blood products transfused: none Procedure in detail: With the patient under satisfactory general anesthesia in the modified dorsal lithotomy position, the vagina, perineum, and abdomen were prepped and draped in the usual manner for laparoscopic-assisted vaginal hysterectomy. A pre-surgical safety time-out was then taken in accordance with [facility] OR protocols. A speculum was inserted in the vagina and a stitch was placed through the anterior lip of the cervix using a 1. PDS. A [employer] uterine manipulator with a medium cup was then placed within the cavity of the uterus after dilation of the cervix to 5 mm with the Hegar dilator. The umbilicus was then infiltrated with 0.25% Marcaine with epinephrine and a 1 cm vertical incision of the lower umbilical fold was made with a 11. Blade. A very as needed was then used to insufflate the abdomen with carbon dioxide and once insufflated a 5 mm trocar and sleeve was placed through that incision. Correct placement of the port was then confirmed with direct visualization with a 5 mm scope. A 2nd and 3rd 5 mm port was then placed in the left and right mid quadrant using a similar technique. Using a 3 puncture technique, the abdomen and pelvis were visualized with the findings as noted above. The patient was placed in steep Trendelenburg in pelvis for fully visualized with the findings as noted above. The left tube was elevated and using a PowerSeal device, the mesosalpinx was coagulated and divided. The dissection was then carried down across the utero-ovarian ligament and round ligament on the left down to the level of the vesico cervical reflection. Bladder flap was created 1st from the left across the midline and the vessels on the left were skeletonized. Those vessels were then coagulated but not divided in attention was then turned to the patient's right side. The uterus was mobilized in the fallopian tube on the right was coagulated and divided along the mesosalpinx followed by dissection downward across the utero-ovarian ligament and round ligament. That dissection was then carried down the lateral aspect of the uterus on the right-hand side and the bladder flap was completed. Bladder was advanced in the vessels on the right side were coagulated but not divided. Once the uterus showed signs of blanching, attention was turned to performance of the vaginal portion of the case. Patient was repositioned and a weighted speculum inserted in the vagina. The cervix was grasped with a single-tooth tenaculum and infiltrated with 0.25% Marcaine with epinephrine. A circumferential incision of the cervix was then made with electrocautery in the bladder was advanced anteriorly. The cervix was extremely long and posterior colpotomy could not immediately be performed. Sequential vascular pedicles were then taken of both sides with the hand-held LigaSure device. Once the dissection was advanced anteriorly, anterior colporrhaphy was easily achieved and a Obey retractor was placed through that defect. Posteriorly, the dissection was carried up to the posterior peritoneal reflection and that was easily entered with Metzenbaum scissors. A long Auvard speculum was then placed through the posterior colpotomy and sequential vascular pedicles were then taken on both sides so as to completely devascularize the uterus. The uterus was then delivered through the vagina and submitted along with the fallopian tubes as a pathologic specimen. The vaginal cuff was then closed with a series of 0 Vicryl [id number] stitches incorporating the uterosacral and cardinal ligaments at the lateral aspect on both sides. The remainder of the vaginal cuff was closed with 0 Vicryl [id number] stitches and hemostasis was complete. A weighted speculum was then placed in the vagina and the anterior vaginal examined. The mid urethra was identified by palpation of the Dempsey balloon and an Allis clamp was used to place that area on stretch and then infiltrated with 0.25% Marcaine with epinephrine. A 2 cm longitudinal incision was then made of the vaginal mucosa over the mid urethral in the periurethral tissues were then dissected bluntly with Metzenbaum scissors bilaterally. A 2 cm longitudinal incision of the vaginal mucosa overlying the mid urethra was then made and using Metzenbaum scissors the dissection was carried lateral on both sides so as to be able to safely introduce the retropubic tension-free vaginal tape. The TVT needle was placed 1st on the right side followed by placement of a left up through the suprapubic skin. The needle tips were brought out through the skin and remained in place while the Dempsey catheter was removed and cystoscopy performed with findings as noted above. The TVT needles were then brought up through the suprapubic incisions and removed with suture scissors. The mid urethral sling was then appropriately positioned under the mid urethra and the plastic sleeves removed from the TVT once it was in correct position. The redundant portion TVT material was then excised at the skin line of the suprapubic incisions. Correct positioning of the DVT was then confirmed and the vaginal incision closed with 3-0 chromic in a running locking stitch. Pressure was maintained on the retropubic tissues for 5 minutes so as to reduce the risk subsequent bleeding or bruising. The suprapubic incisions were then closed with skin glue and inappropriate dressing was applied. Patient was then awakened from anesthesia and transferred to the PACU for a period of observation and recovery after having tolerated procedure well. Complications: none Post-operative Condition: stable Disposition: PACU Plan for aftercare: Routine postoperative care with follow-up in 2 weeks or as needed.
[2025-03-11] MEDS: hydrOXYzine 50 MG/ML INJ IM (13:05)
[2025-03-11] MEDS: ONDANSETRON 4 MG/2 ML INJ IV (13:05)
[2025-03-11] MEDS: LACTATED RINGERS 1,000 ML 100 ML IV (15:34)
[2025-03-11] MEDS: KETOROLAC 30 MG/ML VIAL IV (16:59)
[2025-03-11] MEDS: DOCUSATE 100 MG CAPSULE 200 MG PO (20:37)
[2025-03-11] MEDS: ACETAMINOPHEN 325 MG TABLET 650 MG PO (20:37)
[2025-03-12 00:02] VITALS: O2SAT 95
[2025-03-12] MEDS: LACTATED RINGERS 1,000 ML 100 ML IV (00:46)
[2025-03-12 06:15] LABS: Add Manual Diff / Slide Review NO; Hematocrit 35.6 % (36-46); Hemoglobin 12.2 g/dL (12.0-16.0); Lymphocytes Absolute Auto 1900 /uL (1100-4500); Mean Corpuscular HGB Conc 34.3 % (30-36); Mean Corpuscular Hemoglobin 30.4 PG (26-34); Mean Corpuscular Volume 88.6 fL (80-100); Platelet Count 299 X10^3/uL (150-400)
[2025-03-12 07:38] VITALS: BP 127/61; PULSE 72; RESP 18; TEMP 36.5; O2SAT 98
[2025-03-12] MEDS: ENOXAPARIN 40 MG/0.4 ML SYRINGE SUBCUT (08:15)
[2025-03-12] MEDS: ACETAMINOPHEN 325 MG TABLET 650 MG PO ×2 (08:16→14:06)
[2025-03-12] MEDS: DOCUSATE 100 MG CAPSULE 200 MG PO (08:16)
[2025-03-12] MEDS: IBUPROFEN 600 MG TABLET PO ×2 (12:21→17:08)
--- NOTE | 2025-03-12 15:45 | CM.DANOTE ---
Patient is a 49 yo female who was admitted [facility] on 03/11/25 for Lap Hysterectomy. Pt has [employer] for insurance and her PCP is Juan Love at [facility]. EMR was reviewed. Per OBGYN, pt tolerated procedure well and to wean to room air today and plan to discontinue sheldon and ambulate for possible discharge home tonight vs tomorrow pending progress. Per RN, pt has been independent in room and will work to get pt ambulating and voiding today and no concerns noted for discharge. Pt lives in [place] and is independent at baseline and established with Psych Dr. Thompson for consistent outpt mental health med management. No discharge needs anticipated at this time. Plan: SW to follow for progress and confirm safe discharge home with support tonight vs tomorrow and any further identified discharge planning needs. 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 No Advance Directives No on File History Provided By Patient,Medical Record Has Patient been No admitted in last 30 days? Prior Living House Arrangements Type of Drives own vehicle transporation used prior to admit Independent with ADL Yes 's Is patient alert and Yes oriented? Barriers to No Discharge Discharge Plan Home Referrals Initiated None needed Review Status In Process Please Provide Date 03/12/25 Initial DC Assessment Was Performed Next Review Type Continued Stay Review Pre-Anesthesia Assessment Start: 02/17/25 10:44 Freq: Status: Active Protocol: Document 02/17/25 10:45 LB (Rec: 02/17/25 10:50 LB [id number]) Pre-Anesthesia Assessment Information obtained Chart review via Height 162.56 cm Weight 141.067 kg Body Mass Index (BMI 53.4 ) Has patient seen a Yes specialist in last 12 months? If yes, specialist Emergency,Manager Production seen Patient hospitalized Yes or treated in the ER in the last year? If yes, treated for 04/20 ER visit for atypical chest pain thought to be GI related. Patient experienced Chest pain in the last year Does patient have None history of Has patient ever had No a blood clot? Is patient on No anticoagulant therapy? Does patient have a No business development intern? Does patient have No history of a pacemaker/ICD? Does patient have None history of Does patient use No oxygen at home? Does patient have Yes history of Sleep Apnea? Patient uses CPAP/ Yes BiPAP? Does patient have None history of Does patient have a No neurostimulator or pain stimulator? Does patient have Yes history of GERD? Does patient have No history of kidney/ liver problems/ disease? Does patient have No Diabetes? HgbA1C 5.6 Date 12/01/24 GLP-1? No Does patient have No history of thyroid problems? Does patient have No history of cancer? Smoking status Never smoker Anesthesia Review Yes: BMI 53.4 Requested Comment 02/17/25 Chart and anesthesia review only.
--- NOTE | 2025-03-12 17:08 | PM.DS.IH.1 ---
History of Present Illness History of Present Illness Date Patient Seen: 03/12/25 Time Patient Seen: 17:08 Chief complaint: Abnormal uterine bleeding, bicornuate uterus Narrative: Erin is a 49-year-old G0 who has been bleeding/spotting for over a year. Patient experienced menarche at age 11 and has had irregular menses throughout her reproductive years. She was diagnosed with polycystic ovarian syndrome and placed on oral contraceptives at about the age of 14. She remained on control pills through much of her reproductive years but at times that she has been off control pills, she has never been able to become . Patient subsequently had a ParaGard placed which was removed in about 2015. In the timeframe, the patient began having periods about every 6 months and shortly thereafter began having vasomotor symptoms and other perimenopausal symptoms. She was initiated on transdermal estradiol and oral progesterone in November of 2023 and began bleeding almost immediately. A Mirena IUD was subsequently inserted but after only a few months, on ultrasound performed in June 2024 showed: FINDINGS: Uterus: Uterus is anteverted and normal in size at 8.3 x 4.1 x 4.0 cm. The myometrium is homogeneous. The endometrium measures 4.8 mm combined thickness. Intrauterine device position in the cervix Ovaries: The right ovary measures 4.2 x 3.9 x 2.6 cm, with a calculated ovarian volume of 22.7 cc. 2.4 x 1.9 x 2.1 centimeters simple right ovarian cyst. The left ovary is not visualized due to bowel gas. Less than 12 follicles can be seen in each ovary. No adnexal masses are seen. Other: No pathologic free abdominal or pelvic fluid. IMPRESSION: Intrauterine device positioned in the cervix. The IUD was removed shortly thereafter but her bleeding never stopped. She was placed on control pills once again but the bleeding continued and has continued since being [facility] 3 [facility]. She presents today for further evaluation and discussion of options for possible next steps. She is actively bleeding today which precludes endometrial sampling and to this point, no endometrial sampling has been performed due to the patient's continuous bleeding. The patient's lifelong history of abnormal menses with long periods of amenorrhea and a diagnosis of PCOS is concerning because of the potential increased risk of endometrial hyperplasia/neoplasia. Also concerning is the patient's continuous bleeding over the last 12+ months without any endometrial sampling to this point. We had a long discussion about possible next steps but I believe it is imperative that we rule out the possibility of endometrial neoplasia. With her continuous bleeding however in office sampling would seem inadequate to fully assess the endometrial cavity and therefore recommended hysteroscopy with possible biopsies and dilation and curettage of the uterus. Despite the fact that she had displacement of a Mirena IUD previously, there would be no contraindication to placing another Mirena IUD at the time of surgery unless at the time of hysteroscopy a uterine abnormality such as a septate uterus or bicornuate uterus was discovered. After our discussion, the patient expressed a strong desire to move forward with hysteroscopy and possible biopsies with dilation and curettage and assuming her cavity is normal, placement of a Mirena IUD at the time of surgery. That surgery however demonstrated an endometrial cavity consistent with bicornuate uterus and numerous crypts highly suggestive of significant adenomyosis. The patient's bleeding has continued after her December 2024 surgery and she now has decided to move forward with robotically assisted total laparoscopic hysterectomy with bilateral salpingectomy and placement of mid urethral sling with cystoscopy for JOYCE symptoms. Following consultation with anesthesia however the surgical plan was change to a laparoscopic-assisted vaginal hysterectomy with bilateral salpingectomy and mid urethral sling placement with cystoscopy. The rationale was concern over the effects of prolonged Trendelenburg position in this patient with the LAVH approach affording less time in Trendelenburg and potentially less operative time. Discharge Providers Provider Discharge Date: 03/12/25 Primary care physician: MARY BETH Conrad Discharge provider: Edwin Cervantes MD Summary Hospital Course Discharge Diagnosis: Abnormal uterine bleeding Bicornuate uterus Adenomyosis Stress urinary Morbid obesity Status post laparoscopic-assisted vaginal hysterectomy with bilateral salpingectomy and mid urethral sling placement with cystoscopy Hospital Course: On 03/11/2025, the patient underwent an uneventful laparoscopic assisted vaginal hysterectomy with bilateral salpingectomy and mid urethral sling placement with cystoscopy. Full details of the procedure well summarized on my operative note of that date. Following her surgery the patient has done well with prompt return of bowel and bladder function, she is ambulating independently, tolerating a regular diet, and her pain is well relieved with oral pain medications. She will be discharged at this time to home in an afebrile normotensive condition after counseling regarding precautionary symptoms, limitations of activity, medications, and plans for follow-up which will be in 2 weeks. Medications will include resumption of all preadmission medications as well as oxycodone 5 mg every 4 hours as needed for pain, Cipro 500 mg p.o. b.i.d. x5 days for UTI prophylaxis and Lovenox 40 mg subQ daily times 10 days for DVT prophylaxis. Status at Discharge Cognitive/behavioral status at discharge: oriented Functional status at discharge: independent ambulation Overall status at discharge: patient is progressing back to baseline Time Spent with Patient Time spent: Less than 30 minutes Exam Vital Signs (past 8 hours): Fraction of Inspired Oxygen 24 SaO2/FiO2 Ratio 395 Oxygen Delivery Method Nasal Cannula Oxygen Flow Rate 1 Const General: cooperative and comfortable Nutritional Appearance: average body habitus Orientation: alert and oriented x3 HENMT Head: normal to inspection, atraumatic and abrasion Ears: hearing grossly normal bilaterally Face and sinus: face symmetric Eyes General: appearance normal, both eyes and all related structures Conjunctivae: conjunctivae normal Sclera: sclerae normal EOM: EOM intact bilaterally Neck Neck: normal visual inspection Resp Effort & Inspection: normal respiratory effort and able to speak in complete sentences Auscultation: clear to auscultation bilaterally Cardio Rate: regular rate Rhythm: regular rhythm Heart Sounds: S1 normal, S2 normal and no murmurs GI Inspection: normal to inspection and incision (Surgical dressings clean and dry) Palpation: soft, no hepatosplenomegaly and tender (Mild, diffuse postsurgical tenderness) External Female Exam: other (No significant bleeding noted) Extrem General: no calf tenderness Psych Appearance: grossly normal Mental Status: mental status grossly normal Speech and Movement: speech and movement normal Mood: congruent mood Affect: normal affect Attitude: cooperative Thought Process: normal Thought Content: normal Judgment: judgment good Objective Labs 03/12/25 05:32 Labs: Laboratory Results - last 24 hr 03/12/25 05:32 WBC 14.2 H RBC 4.02 Hgb 12.2 Hct 35.6 L MCV 88.6 MCH 30.4 MCHC 34.3 RDW 13.7 Plt Count 299 Neut % (Auto) 81.3 H Lymph % (Auto) 13.7 L [place] % (Auto) 4.6 Eos % (Auto) 0.0 L Baso % (Auto) 0.4 Neut # (Auto) 09092 H Lymph # (Auto) 1900 [place] # (Auto) 700 Eos # (Auto) 0 Baso # (Auto) 100 PFSH Medical History (Updated 02/06/25 @ 11:38 by Edwin Cervantes MD) GERD (gastroesophageal reflux disease) Bilateral carpal tunnel syndrome Anxiety disorder, unspecified MDD (major depressive disorder), recurrent, in partial remission ADHD, predominantly inattentive type Dyslipidemia Increased risk of breast cancer PCOS (polycystic ovarian syndrome) Bilateral primary osteoarthritis of knee Allergy to adhesive Perimenopause Insomnia ANKIT (obstructive sleep apnea) Class 3 severe obesity due to excess calories in adult Depression Headache Chicken pox Painful menstrual periods Infertility Oral herpes Heavy menstrual period Abnormal Pap smear of cervix JOYCE (stress urinary incontinence, female) (~2021) Cold sore Knee pain Sleep apnea Seizure Migraines Ovarian cyst Irregular menstrual cycle Human papilloma virus Recurrent abdominal pain Surgical History (Updated 02/17/25 @ 10:51 by Betty Arvizu RN) History of hysteroscopy (12/2024) Anesthesia Perirectal abscess (~2015) History of appendectomy (~2014) History of cholecystectomy (~2000) Family History Mother Cancer Diabetes mellitus History of heart disease Hypertension Hyperlipidemia Mental health problem COPD (chronic obstructive pulmonary disease) Obesity Father Hypertension Social History Smoking Status: Never smoker alcohol intake: current Discharge Assessment & Plan Assessment and Plan Assessment: Abnormal uterine bleeding Bicornuate uterus Adenomyosis Stress urinary Morbid obesity Status post laparoscopic-assisted vaginal hysterectomy with bilateral salpingectomy and mid urethral sling placement with cystoscopy Plan of Treatment: Routine postoperative care with follow-up planned for 2 weeks Discharge Plan Discharge Plan Provider Discharge Comment: Please review the written instructions you received when you were discharged from the hospital. Your follow-up appointment is scheduled for 2 weeks after surgery and I look forward to seeing you then. If however in the meanwhile you have any issues, concerns, or questions, please contact me either by phone through the office at [phone], or via the patient portal. Post-Operative Instructions for Mid-Urethral Sling Procedure Surgical Site: Blood spotting from the vagina is expected and not cause for alarm. All stitches will dissolve on their own. You may apply ice packs to the vaginal/pubic area as needed for comfort for the first two days. You can shower approximately 48 hours after your surgery but avoid scrubbing the surgical site. Do not submerge underwater for 6 weeks (no bathtub or swimming pool). Diet and Activity: You may return to your normal diet and light activity, as tolerated, after surgery. Avoid driving while on narcotic pain medications. Please avoid any heavy lifting more than 10 lbs or strenuous physical activities altogether for 4 weeks and then ease back into your regular activity. Avoid vaginal intercourse or penetration for 6 weeks. Medications: You received a prescription for a narcotic pain pill to use in addition to extra strength Tylenol (acetaminophen). Narcotics can cause constipation so use [id number] stool softeners as needed. Please avoid any Aspirin, Advil, Motrin, Aleve, ibuprofen, or any other blood thinners after the procedure for at least two days. Problems you should report: Fevers > 101. Any pain not controlled by pain medication provided. Uncontrolled bleeding from the incision. Inability to urinate. Any concerns or problems, please contact us at anytime. Follow-up: You should be scheduled for a post-operative appointment about 2 weeks after your surgery. Please call to confirm time if necessary. Discharge orders & Medications Discharge Orders: Discharge (Order); Ordered 03/12/25 Ordered By: Edwin Cervantes Prescriptions: New oxycodone 5 mg Tablet 5 mg PO Q4HR PRN (Reason: Pain, Moderate (4-6)) Qty: 20 0RF enoxaparin [Lovenox] 40 mg/0.4 mL Syringe 40 mg SUBCUT BID 10 Days Qty: 10 0RF ciprofloxacin HCl [Cipro] 500 mg tablet 500 mg PO BID 5 Days Qty: 10 0RF Continued atomoxetine 40 mg capsule 40 mg PO QAM Qty: 90 1RF Rx Instructions: Take with food trazodone 150 mg tablet See Rx Instructions .ROUTE .COMPLEX PRN (Reason: insomnia) Qty: 90 1RF Rx Instructions: Increase trazodone to 75mg by mouth at bedtime as needed for insomnia. Can increase by 25mg-50mg every two days as tolerated to maximum dose of 150mg at bedtime as needed. (DME) Disabled Parking Permit See Rx Instructions .Route .MEDSUPPLY Qty: 1 0RF Rx Instructions: See accompanying application acyclovir 400 mg tablet 400 mg PO BID Qty: 180 3RF meloxicam 15 mg tablet 15 mg PO DAILY Qty: 90 0RF cholecalciferol (vitamin D3) 25 mcg (1,000 unit) capsule 25 mcg PO DAILY turmeric 400 mg capsule 400 mg PO DAILY omega-3 fatty acids 500 mg capsule 500 mg PO DAILY mecobalamin (vitamin B12) 1,000 mcg tablet,chewable 1,000 mcg PO DAILY magnesium citrate 125 mg capsule 100 mg PO DAILY levonorgestrel-ethinyl estrad 0.15 mg-30 mcg (91) tablets,dose pack,3 month See Rx Instructions PO .COMPLEX Qty: 273 3RF Rx Instructions: take 1 tablet daily following the order on blister card(s) PO (DME) disabled parking See Rx Instructions .ROUTE .MEDSUPPLY Qty: 1 0RF Rx Instructions: I find this patient to be medically disabled and qualified for Disabled Parking as indicated, and signed, on the Accompanying Disabled Parking Application for individuals. Follow up/Referrals: Juan Love ARNP [Primary Care Provider, Medical] Edwin Cervantes MD [Physician, [employer]] Discharge Health Status Multidrug resistant organism: No MDRO Diet/Activity/Treatments Diet: Diet as Tolerated Activity: As tolerated Other treatments: [id number] Tylenol and/or ibuprofen may be used for additional pain relief. Zouc-krh-eqtuhjj stool softeners and/or MiraLax may be used as needed for constipation. Skin/Wound/Dressing Care Report to your healthcare provider any signs of infection, such as:: chills, fever Dressing: Dressings should be removed on the morning of 03/13/2025 Visit Report/Discharge Packet Instructions: DI for Hysterectomy, DI for Laparoscopy Print Language: [place] Discharge Data Primary Care Provider: Juan Love Attending Provider: Edwin Cervantes Quality VTE Deep Vein Thrombosis/Pulmonary Embolism Present on Admission: Yes [facility]EE Charge Codes Discharge inpatient/observation: 32026
== END 2025-03-12 18:00 | disposition home or self-care (01) ==
LOC: OR 08:13 → AC 14:10
PROVIDERS: PCP Registered Nurse Diabetes Educator; Referring Provider Registered Nurse Diabetes Educator; Visit Provider Obstetrics & Gynecology
PROC: 0UT94ZZ Resection of Uterus, Percutaneous Endoscopic Approach (ICD-10-PCS; CPT 58552; principal; 2025-03-11 09:45)
PROC: 0TSD0ZZ Reposition Urethra, Open Approach (ICD-10-PCS; CPT 58552; 2025-03-11 09:45)
DX: N92.1 Excessive and frequent menstruation with irregular cycle (principal); N72 Inflammatory disease of cervix uteri; N71.9 Inflammatory disease of uterus, unspecified; N39.3 Stress incontinence (female) (male); Q51.3 Bicornate uterus; N81.11 Cystocele, midline; G47.33 Obstructive sleep apnea (adult) (pediatric); E66.01 Morbid (severe) obesity due to excess calories; Z68.43 Body mass index [BMI] 50.0-59.9, adult
CPT/HCPCS: 58552; 57288; 85025; C1771; J0330; J0687; J1100; J1171; J1650; J1885; J2250; J2405; J2704; J3010; J3410; J3490; J7050; J7120

== ENCOUNTER → 2025-04-20 09:09 | Outpatient (CLI) | payer OTHER, SELFPAY ==
[2025-03-11 14:13] VITALS: BMI 53.4
[2025-04-20 10:22] LABS: Alanine Aminotransferase 64 IU/L (<35); Albumin 4.4 g/dL (3.5-5.0); Albumin Globulin Ratio 1.5 (1.0-2.8); Alkaline Phosphatase 69 U/L (38-126); Blood Urea Nitrogen 20 mg/dL (7-17); Calcium 9.8 mg/dL (8.4-10.2); Carbon Dioxide 26 mmol/L (22-32); Chloride 102 mmol/L (98-107); Cholesterol 238 mg/dL (140-199); Estimated Glomerular Filt Rate > 60 mL/min (>60); Globulin 2.9 g/dL (1.7-4.1); Glucose 106 mg/dL (70-99); HDL Cholesterol 65 mg/dL (40-60); HEMOLYSIS < 15 (0-50); Potassium 4.6 mmol/L (3.4-5.1); Sodium 138 mmol/L (137-145); Total Protein 7.3 g/dL (6.3-8.2); Triglycerides 129 mg/dL (35-150)
[2025-04-20 10:40] LABS: Hematocrit 40.8 % (36-46); Hemoglobin 13.9 g/dL (12.0-16.0); Mean Corpuscular HGB Conc 34.1 % (30-36); Mean Corpuscular Hemoglobin 30.1 PG (26-34); Mean Corpuscular Volume 88.3 fL (80-100); Platelet Count 330 X10^3/uL (150-400)
[2025-04-20 10:54] LABS: TSH w/ Reflex to FT4 1.69 uIU/mL (0.47-4.68)
== END ==
PROVIDERS: PCP Registered Nurse Diabetes Educator; Referring Provider Registered Nurse Diabetes Educator; Visit Provider Registered Nurse Diabetes Educator
DX: Z00.00 Encounter for general adult medical examination without abnormal findings (principal); E78.5 Hyperlipidemia, unspecified; Z68.43 Body mass index [BMI] 50.0-59.9, adult
CPT/HCPCS: 36415; 80053; 80061; 84443; 85027